=== PATIENT | female | born 1955 | race Hispanic/Latino ===

== ENCOUNTER → 2017-08-22 | Day surgery (SDC) | payer MEDICARE, BC ==
[2017-08-21 11:45] LABS: BASOPHILS # (AUTO) 0.1 (0.0-0.1); BASOPHILS % 1.1 % (0.0-1.0); EOSINOPHILS # (AUTO) 0.3 (0.0-0.4); EOSINOPHILS % 3.9 % (0.0-6.0); HEMOGLOBIN 14.7 g/dL (12.0-16.0); LYMPHOCYTES # (AUTO) 3.1 (1.0-3.2); LYMPHOCYTES % 48.1 % (18.0-39.1); MEAN CORPUSCULAR HEMOGLOBIN 31.1 pg (28-32); MEAN CORPUSCULAR HGB CONC 32.7 g/dL (31-35); MEAN CORPUSCULAR VOLUME 95.3 fL (81-99); MONOCYTES # (AUTO) 0.7 (0.2-0.8); MONOCYTES % 10.6 % (4.4-11.3); NEUTROPHILS # (AUTO) 2.4 (2.1-6.9); NEUTROPHILS % 36.1 % (38.7-80.0); PLATELET COUNT 126 x10e3/uL (140-360); RED BLOOD COUNT 4.72 x10e6/uL (3.6-5.1)
[~2017-08-22] MED LIST: ALENDRONATE SOD70 MG PO; ALPRAZOLAM0.25 M1 PO; ARAVA10 MG PO; CARAFATE1 GM PO; CYCLOBENZAPRINE10 MG PO; DICYCLOMINE HCL20 MG PO; FENTANYL CITRATE/PF 100MCG/2 ML INJ ONE; FOLIC ACID1 MG PO; GABAPENTIN300 MG PO; HUMIRA40 MG/0.8 SC; HYOSCYAMINE SULFATE 0.5 MG/ML AMP ONE; METHOCARBAMOL750 MG PO; METOCLOPRAMIDE10 MG PO; METOPROLOL SUC100 MG PO; METOPROLOL TAR100 MG PO; MICARDIS HCT 81 EACH PEG; MIDAZOLAM HCL 2 MG/2 ML VIAL ONE; NEXIUM40 MG PO; OMEPRAZOLE40 MG PO; PLAQUENIL200 MG PO; PREDNISONE5 M1 PO; PREDNISONE5 MG PO; PROPOFOL IV EMULSION 10 MG/ML 50 ML VIAL ONE; SUCRALFATE1 GM PO; TYLENOL EXTRA500 MG PO; ULTRAM50 MG PO
--- NOTE | 2017-08-22 10:16 | Operative Report ---
DATE OF PROCEDURE: August 22, 2017 REFERRING PHYSICIAN: Dr. Claudia Hardy PROCEDURES PERFORMED 1. Esophagogastroduodenoscopy with esophageal dilatation and biopsies. 2. Colonoscopy with polypectomy. INDICATIONS FOR EGD: Dysphagia and bloating. INDICATIONS FOR COLONOSCOPY: Colorectal cancer screening and history of colon polyps. MEDICATION: Patient was done under MAC. Please see anesthesiologist's note. PROCEDURE: With the patient in the left lateral decubitus position, the flexible fiberoptic Olympus gastroscope was introduced into the esophagus under direct visualization without any difficulty. There was some patchy erythema noted in the distal esophagus. There was a mild stricture noted at the GE junction that was dilated to a size 52-[place] Flannery. The scope was then advanced with ease into the stomach traversing a small hiatal hernia. Mucosa overlying the antrum and the body revealed some patchy erythema and mild to moderate edema, and biopsies were obtained and sent to stain for H. pylori. Pylorus appeared to be of normal contour and shape. It was intubated with ease. The scope was advanced all the way to the 2nd portion of the duodenum. The scope was then withdrawn slowly. Mucosa overlying the proximal 2nd portion and the duodenal bulb appeared to be within normal limits. The scope was then withdrawn back into the stomach and retroflexed. The mucosa overlying the fundus and the cardia appeared to be within normal limits. The scope was then straightened out. The stomach was decompressed. The scope was subsequently withdrawn. Patient tolerated the procedure well. IMPRESSION 1. Mild distal esophagitis. 2. Mild stricture at gastroesophageal junction dilated to size 52-[place] Flannery. 3. Small hiatal hernia. 4. Gastritis, biopsied. Biopsies sent to stain for Helicobacter pylori. PLAN: Follow up histology. Initiate Protonix 40 mg 1 p.o. q.a.m. a.c. Patient was then turned around. After adequate lubrication of the anal canal, a flexible fiberoptic Olympus colonoscope was inserted into the rectum with ease and advanced all the way to the cecum. The scope was then withdrawn slowly. The cecum appeared to be within normal limits. A minute polyp was hot biopsied from the proximal ascending. An approximately 4 mm sessile polyp was snared from the distal ascending colon. The transverse and descending appeared to be within normal limits. Diverticular disease was noted to involve the sigmoid colon. The rectum appeared to be within normal limits. The scope was then retroflexed into the distal rectum and small internal hemorrhoids were noted, none of which was actively bleeding. The scope was then straightened out. The rectosigmoid area, as well as the distal rectal area were decompressed. The scope was subsequently withdrawn. Patient tolerated the procedure well. IMPRESSION 1. Ascending colon polyps, times 2, one snared and one hot biopsied. 2. Diverticulosis. 3. Internal hemorrhoids, none actively bleeding. PLAN: Follow up histology. Initiate high-fiber and low-fat diet. Initiate high-fiber supplement. Patient will need a followup colonoscopy in 3 years. Job#: [id number] RI cc:CLAUDIA HARDY MD
== END | disposition home or self-care (01) ==
LOC: OR 05:55
PROVIDERS: ATTEND Internal Medicine Gastroenterology
DX: Z12.11 Encounter for screening for malignant neoplasm of colon (principal); D12.2 Benign neoplasm of ascending colon; K29.70 Gastritis, unspecified, without bleeding; K22.2 Esophageal obstruction; K20.9 Esophagitis, unspecified; K21.9 Gastro-esophageal reflux disease without esophagitis; K44.9 Diaphragmatic hernia without obstruction or gangrene; K57.30 Diverticulosis of large intestine without perforation or abscess without bleeding; K64.8 Other hemorrhoids; I10 Essential (primary) hypertension; Z01.810 Encounter for preprocedural cardiovascular examination; Z01.812 Encounter for preprocedural laboratory examination
CPT/HCPCS: 36415; 43239; 43450; 45384; 45385; 85025; 88305; 88312; 93005; J1980; J2250

== ENCOUNTER → 2020-03-27 | Outpatient (CLI) | payer MEDICARE ==
[~2020-03-27] MED LIST changes: -FENTANYL CITRATE/PF 100MCG/2 ML INJ ONE; -HYOSCYAMINE SULFATE 0.5 MG/ML AMP ONE; -MIDAZOLAM HCL 2 MG/2 ML VIAL ONE; -PROPOFOL IV EMULSION 10 MG/ML 50 ML VIAL ONE
--- NOTE | 2020-03-27 08:09 | Diagnostic Imaging Report ---
EXAM: Complete Abdominal Ultrasound INDICATION: ^ABD PAIN,RT LATERAL COMPARISON: None. TECHNIQUE: Transverse and longitudinal images of the upper abdomen were obtained. FINDINGS: Liver: Size: 11.7 cm in the right midclavicular line, normal Appearance: Increased echogenicity, smooth contour Mass: No focal masses Spleen: Size: 9.2 cm in length, normal Echogenicity: Normal Mass: No focal masses Gallbladder: Removed Bile Ducts: Intrahepatic Ducts: No dilatation Extrahepatic Ducts: Common bile duct measures 0.6 cm, no dilatation Pancreas: Not well seen, obscured by bowel gas. Right Kidney: Size: 9.9 cm Echogenicity: Normal Parenchymal thickness: Normal Collecting System: No hydronephrosis Stone: None Cyst/Mass: None Left Kidney: Size: 10.2 cm Echogenicity: Normal Parenchymal thickness: Normal Collecting System: No hydronephrosis Stone: None Cyst/Mass: None Vessels: Aorta: Visualized portions are normal Inferior Vena Cava: Visualized portions are normal Main Portal Vein: 0.7 cm, normal size with hepatopetal flow. Free Fluid: No ascites or pleural effusion IMPRESSION: No acute sonographic abnormality identified. Signed by: Ronaldo Paz DO on 03/27/2020 8:06 AM
== END ==
LOC: US 06:55
PROVIDERS: ATTEND Internal Medicine Gastroenterology
DX: R10.9 Unspecified abdominal pain (principal)
CPT/HCPCS: 76700

== ENCOUNTER → 2020-08-11 | Day surgery (SDC) | payer BC, MEDICARE ==
[2020-08-09 08:50] LABS: HEMATOCRIT 39.6 % (34.2-44.1); MEAN CORPUSCULAR HGB CONC 32.8 g/dL (31-35); MEAN CORPUSCULAR VOLUME 94.5 fL (81-99); RED BLOOD COUNT 4.19 x10e6/uL (3.6-5.1); RED CELL DISTRIBUTION WIDTH 13.4 % (11.7-14.4)
[2020-08-09 08:51] LABS: BASOPHILS # (AUTO) 0.1 (0.0-0.1); BASOPHILS % 0.6 % (0.0-1.0); EOSINOPHILS # (AUTO) 0.1 (0.0-0.4); EOSINOPHILS % 1.1 % (0.0-6.0); LYMPHOCYTES # (AUTO) 2.9 (1.0-3.2); LYMPHOCYTES % 35.2 % (18.0-39.1); MONOCYTES # (AUTO) 0.8 (0.2-0.8); MONOCYTES % 9.1 % (4.4-11.3); NEUTROPHILS # (AUTO) 4.4 (2.1-6.9); NEUTROPHILS % 53.4 % (38.7-80.0); PLATELET COUNT 176 x10e3/uL (140-360)
[~2020-08-11] MED LIST changes: +DILTIAZEM ER PO; +HYOSCYAMINE 0.125 MG TAB ONE; +LIDOCAINE HCL 2% LOCAL INJ 5 ML SDV VIAL INJ ONE; +MIDAZOLAM HCL 2 MG/2 ML VIAL ONE; +ONDANSETRON HCL INJ 2MG/ML 2ML 2 MG/ML VIAL ONE; +ONDANSETRON HCL8 MG PO; +PROPOFOL IV EMULSION 10 MG/ML 20 ML VIAL ONE; +REGLAN10 MG PO; +TRIAMTERENE-HCTZ1 EA PO; +VSL#3 CAPSULE1 EACH PO; +XARELTO20 MG PO
[2020-08-11 15:20] VITALS: BP 149/75
== END | disposition home or self-care (01) ==
LOC: OR 10:23
PROVIDERS: ATTEND Internal Medicine Gastroenterology
DX: K29.70 Gastritis, unspecified, without bleeding (principal); D12.0 Benign neoplasm of cecum; D12.3 Benign neoplasm of transverse colon; K31.7 Polyp of stomach and duodenum; K22.2 Esophageal obstruction; K20.90 Esophagitis, unspecified without bleeding; K44.9 Diaphragmatic hernia without obstruction or gangrene; K28.9 Gastrojejunal ulcer, unspecified as acute or chronic, without hemorrhage or perforation; K21.9 Gastro-esophageal reflux disease without esophagitis; K57.30 Diverticulosis of large intestine without perforation or abscess without bleeding; K62.89 Other specified diseases of anus and rectum; K64.8 Other hemorrhoids; I49.1 Atrial premature depolarization; M06.9 Rheumatoid arthritis, unspecified; I10 Essential (primary) hypertension; E78.5 Hyperlipidemia, unspecified; I48.91 Unspecified atrial fibrillation; R60.9 Edema, unspecified; F41.9 Anxiety disorder, unspecified; Z01.810 Encounter for preprocedural cardiovascular examination; Z01.812 Encounter for preprocedural laboratory examination; Z20.822 Contact with and (suspected) exposure to COVID-19; Z79.02 Long term (current) use of antithrombotics/antiplatelets; Z80.0 Family history of malignant neoplasm of digestive organs
CPT/HCPCS: 36415; 43239; 43450; 45380; 85025; 93005; J2001; J2250; J2405; J2704; U0002; 45378; 45384

== ENCOUNTER 2021-01-23 21:05 | Inpatient (IN) | payer MEDICARE ==
[~2021-01-23] VITALS: Ht 162.6 cm; Wt 94.8 kg
[~2021-01-23 21:05] MED LIST changes: -HYOSCYAMINE 0.125 MG TAB ONE; -LIDOCAINE HCL 2% LOCAL INJ 5 ML SDV VIAL INJ ONE; -MIDAZOLAM HCL 2 MG/2 ML VIAL ONE; -ONDANSETRON HCL INJ 2MG/ML 2ML 2 MG/ML VIAL ONE; -PROPOFOL IV EMULSION 10 MG/ML 20 ML VIAL ONE
[2021-01-23] MEDS ORDERED: MORPHINE SULFATE INJ 4 MG/ML INJ 1ML IV STA (22:02)
[2021-01-23] MEDS ORDERED: ONDANSETRON HCL INJ 2MG/ML 2ML 2 MG/ML VIAL IV STA (22:02)
[2021-01-23] MEDS ORDERED: SODIUM CHLORIDE 0.9% 1000ML 1,000 ML IV ONE (22:15)
[2021-01-23 22:33] LABS: BASOPHILS % 0.3 % (0.0-1.0); EOSINOPHILS # (AUTO) 0.1 (0.0-0.4); EOSINOPHILS % 0.9 % (0.0-6.0); HEMATOCRIT 43.9 % (34.2-44.1); LYMPHOCYTES # (AUTO) 2.4 (1.0-3.2); MEAN CORPUSCULAR HEMOGLOBIN 32.1 pg (28-32); MEAN CORPUSCULAR HGB CONC 34.2 g/dL (31-35); MONOCYTES # (AUTO) 1.3 (0.2-0.8); MONOCYTES % 10.8 % (4.4-11.3); NEUTROPHILS # (AUTO) 7.9 (2.1-6.9); NEUTROPHILS % 66.8 % (38.7-80.0); PLATELET COUNT 217 x10e3/uL (140-360); RED BLOOD COUNT 4.67 x10e6/uL (3.6-5.1); RED CELL DISTRIBUTION WIDTH 13.1 % (11.7-14.4)
[2021-01-23 22:44] LABS: ALBUMIN 3.4 g/dL (3.5-5.0); ALBUMIN/GLOBULIN RATIO 0.9 (0.8-2.0); ANION GAP 17.1 mmol/L (8-16); CALCIUM 9.2 mg/dL (8.4-10.2); CREATININE, SERUM 1.2 mg/dL (0.57-1.11); POTASSIUM 3.1 mmol/L (3.5-5.1)
[2021-01-23 22:51] LABS: CREATINE KINASE MB 1.5 ng/mL (0-5.0)
[2021-01-23] MEDS ORDERED: CEFEPIME 1 GM in SODIUM CHLORIDE 0.9% 50ML 50 ML IV ONE (23:00)
[2021-01-23] MEDS ORDERED: SODIUM CHLORIDE 0.9% 50ML 50 ML ONE (23:05)
[2021-01-23] MEDS ORDERED: IOPAMIDOL 370 MG/ML 200 ML INFUS..BTL INJ ONE (23:05)
[2021-01-24 00:13] LABS: CLARITY,URINE CLEAR (CLEAR); COLOR,URINE YELLOW (YELLOW); KETONES,URINE TRACE (NEGATIVE); LEUKOCYTE ESTERASE ,URINE NEGATIVE (NEGATIVE); NITRITE,URINE NEGATIVE (NEGATIVE); PROTEIN,URINE DIPSTICK 1+ (NEGATIVE)
[2021-01-24 00:14] LABS: BACTERIA,URINE FEW /HPF; EPITHELIAL CELLS,URINE FEW /LPF; RBC,URINE 0-5 /HPF (0-5); URINE UROBILINOGEN 0.2 mg/dL (0.2 - 1); WBC,URINE (MAN) 0-5 /HPF (0-5)
[2021-01-24] MEDS ORDERED: MORPHINE SULFATE INJ 4 MG/ML INJ 1ML IV PRN (00:15)
[2021-01-24] MEDS ORDERED: KCL 20MEQ/.9 SOD CHL 1,000 ML IV ONE (00:15)
[2021-01-24] MEDS ORDERED: DEXTROSE 50% SYRINGE 50 ML IV PRN (00:15)
[2021-01-24] MEDS: METRONIDAZOLE 500MG/NS 100ML 100 ML IV SCH ×5 (00:24→23:56)
[2021-01-24] MEDS: ACETAMINOPHEN 325 MG TAB PO PRN ×3 (00:50→12:55)
[2021-01-24] MEDS ORDERED: ACETAMINOPHEN 325 MG TAB ONE (00:54)
[2021-01-24 01:25] VITALS: BP 135/56
[2021-01-24] MEDS: ONDANSETRON HCL INJ 2MG/ML 2ML 2 MG/ML VIAL IV PRN ×3 (04:50→20:43)
[2021-01-24] MEDS ORDERED: SODIUM CHLORIDE 0.9% 100 ML ONE (05:27)
[2021-01-24] MEDS: CEFEPIME 1 GM in SODIUM CHLORIDE 0.9% 50ML 50 ML IV SCH ×3 (05:28→22:10)
[2021-01-24] MEDS: INSULIN REGULAR, HUMAN 100 UNIT/1 ML 3ML VIAL SQ SCH ×4 (07:30→20:43)
[2021-01-24 08:14] VITALS: BP 122/55
[2021-01-24 08:32] LABS: CREATINE KINASE MB 4.1 ng/mL (0-5.0)
[2021-01-24 08:56] VITALS: BP 122/55
[2021-01-24] MEDS ORDERED: GABAPENTIN400 MG PO (10:13)
[2021-01-24] MEDS ORDERED: PANTOPRAZOLE SO40 MG PO (10:13)
[2021-01-24] MEDS ORDERED: METHOCARBAMOL750 MG PO (10:14)
[2021-01-24] MEDS ORDERED: ETODOLAC400 MG PO (10:15)
[2021-01-24 11:25] VITALS: BP 138/55
[2021-01-24] MEDS ORDERED: SODIUM CHLORIDE 0.9% 50ML 50 ML ONE (12:50)
[2021-01-24 15:21] VITALS: BP 144/57
[2021-01-24 16:52] LABS: CREATINE KINASE MB 5.1 ng/mL (0-5.0)
[2021-01-24 20:00] VITALS: BP 150/66
[2021-01-24] MEDS: ALPRAZOLAM 0.25 MG TAB PO SCH ×2 (20:38→21:44)
[2021-01-24] MEDS ORDERED: SODIUM CHLORIDE 0.9% 250ML 250 ML ONE (22:02)
[2021-01-25] VITALS (8 sets, daily range): BP systolic 117–153; BP diastolic 61–79
[2021-01-25] MEDS ORDERED: METOCLOPRAMIDE HCL 10 MG/2ML VIAL IV STA (00:59)
[2021-01-25] MEDS ORDERED: Pantoprazole IV 50 ML IV SCH (01:00)
[2021-01-25] MEDS: Pantoprazole IV 40 MG in SODIUM CHLORIDE 0.9% 50ML 50 ML IV SCH ×5 (03:15→23:15)
[2021-01-25] MEDS: CEFEPIME 1 GM in SODIUM CHLORIDE 0.9% 50ML 50 ML IV SCH ×3 (05:27→22:00)
[2021-01-25 05:31] LABS: BASOPHILS % 0.5 % (0.0-1.0); EOSINOPHILS # (AUTO) 0.1 (0.0-0.4); EOSINOPHILS % 1.6 % (0.0-6.0); HEMATOCRIT 37.1 % (34.2-44.1); HEMOGLOBIN 12.3 g/dL (12.0-16.0); LYMPHOCYTES # (AUTO) 1.6 (1.0-3.2); LYMPHOCYTES % 20.7 % (18.0-39.1); MEAN CORPUSCULAR HEMOGLOBIN 31.2 pg (28-32); MEAN CORPUSCULAR HGB CONC 33.2 g/dL (31-35); MEAN CORPUSCULAR VOLUME 94.2 fL (81-99); MONOCYTES # (AUTO) 1.2 (0.2-0.8); MONOCYTES % 14.9 % (4.4-11.3); NEUTROPHILS # (AUTO) 4.7 (2.1-6.9); NEUTROPHILS % 61.1 % (38.7-80.0); PLATELET COUNT 152 x10e3/uL (140-360); RED BLOOD COUNT 3.94 x10e6/uL (3.6-5.1); RED CELL DISTRIBUTION WIDTH 13.1 % (11.7-14.4)
[2021-01-25 05:59] LABS: ALBUMIN 2.7 g/dL (3.5-5.0); ALBUMIN/GLOBULIN RATIO 0.9 (0.8-2.0); CALCIUM 8.2 mg/dL (8.4-10.2); CREATININE, SERUM 0.84 mg/dL (0.57-1.11)
[2021-01-25] MEDS: METRONIDAZOLE 500MG/NS 100ML 100 ML IV SCH ×3 (06:07→17:41)
[2021-01-25] MEDS: METOCLOPRAMIDE HCL 10 MG/2ML VIAL IV SCH ×3 (07:15→17:41)
[2021-01-25] MEDS: INSULIN REGULAR, HUMAN 100 UNIT/1 ML 3ML VIAL SQ SCH ×4 (07:30→21:00)
[2021-01-25] MEDS ORDERED: PANTOPRAZOLE SOD 40 MG TABEC PO SCH (09:00)
[2021-01-25] MEDS ORDERED: POTASSIUM CHLORIDE 10MEQ EA PO ONE (09:30)
[2021-01-25] MEDS: SUCRALFATE 1 GM TAB PO SCH ×4 (10:10→21:20)
[2021-01-25] MEDS: METOPROLOL TARTRATE 50 MG TAB PO SCH ×2 (10:10→17:42)
[2021-01-25] MEDS: GABAPENTIN 400 MG CAP PO SCH ×3 (10:10→21:20)
[2021-01-25] MEDS: ENOXAPARIN SODIUM INJ 100 MG/ML SYR SC SCH ×2 (12:19→22:45)
[2021-01-25] MEDS: FOLIC ACID 1 MG TAB PO SCH (17:41)
[2021-01-25] MEDS: ACETAMINOPHEN 325 MG TAB PO PRN (18:00)
[2021-01-25] MEDS: ALPRAZOLAM 0.25 MG TAB PO SCH (21:00)
[2021-01-25] MEDS ORDERED: SODIUM CHLORIDE 0.9% 50ML 50 ML ONE (21:14)
[2021-01-26] VITALS (8 sets, daily range): BP systolic 130–146; BP diastolic 57–77
[2021-01-26] MEDS: METRONIDAZOLE 500MG/NS 100ML 100 ML IV SCH ×4 (00:20→18:14)
[2021-01-26] MEDS: METOCLOPRAMIDE HCL 10 MG/2ML VIAL IV SCH ×4 (00:20→18:14)
[2021-01-26] MEDS: Pantoprazole IV 40 MG in SODIUM CHLORIDE 0.9% 50ML 50 ML IV SCH ×4 (04:20→21:59)
[2021-01-26] MEDS: ACETAMINOPHEN 325 MG TAB PO PRN (04:58)
[2021-01-26] MEDS: CEFEPIME 1 GM in SODIUM CHLORIDE 0.9% 50ML 50 ML IV SCH ×3 (06:30→22:07)
[2021-01-26] MEDS: INSULIN REGULAR, HUMAN 100 UNIT/1 ML 3ML VIAL SQ SCH ×4 (09:33→21:00)
[2021-01-26] MEDS: FOLIC ACID 1 MG TAB PO SCH (09:34)
[2021-01-26] MEDS: SUCRALFATE 1 GM TAB PO SCH ×4 (09:34→21:58)
[2021-01-26] MEDS: METOPROLOL TARTRATE 50 MG TAB PO SCH ×2 (09:35→16:22)
[2021-01-26] MEDS: GABAPENTIN 400 MG CAP PO SCH ×3 (09:35→21:58)
[2021-01-26] MEDS: ENOXAPARIN SODIUM INJ 100 MG/ML SYR SC SCH ×2 (09:59→22:03)
[2021-01-26] MEDS: ALPRAZOLAM 0.25 MG TAB PO SCH (22:02)
[2021-01-27] VITALS: BP 137/61
[2021-01-27] MEDS: METOCLOPRAMIDE HCL 10 MG/2ML VIAL IV SCH ×2 (00:25→06:17)
[2021-01-27] MEDS: METRONIDAZOLE 500MG/NS 100ML 100 ML IV SCH ×2 (00:25→06:13)
[2021-01-27] MEDS: Pantoprazole IV 40 MG in SODIUM CHLORIDE 0.9% 50ML 50 ML IV SCH ×2 (01:39→06:59)
[2021-01-27 04:00] VITALS: BP 127/51
[2021-01-27] MEDS: INSULIN REGULAR, HUMAN 100 UNIT/1 ML 3ML VIAL SQ SCH (07:30)
[2021-01-27] MEDS: CEFEPIME 1 GM in SODIUM CHLORIDE 0.9% 50ML 50 ML IV SCH (07:31)
[2021-01-27 08:00] VITALS: BP 137/68
[2021-01-27 08:37] VITALS: BP 137/68
[2021-01-27] MEDS: FOLIC ACID 1 MG TAB PO SCH (09:18)
[2021-01-27] MEDS: SUCRALFATE 1 GM TAB PO SCH (09:18)
[2021-01-27] MEDS: METOPROLOL TARTRATE 50 MG TAB PO SCH (09:22)
[2021-01-27] MEDS: GABAPENTIN 400 MG CAP PO SCH (09:22)
[2021-01-27] MEDS: ACETAMINOPHEN 325 MG TAB PO PRN (09:23)
[2021-01-27] MEDS ORDERED: METOPROLOL TART50 MG PO (10:18)
== END 2021-01-27 11:41 | disposition home or self-care (01) | DRG 392 ==
LOC: ER 22:09 → ERHOLD 01-24 00:09 → MED/SURG2 01-24 03:52 → OBSVTOIN 01-25 08:31
PROVIDERS: ADMIT Internal Medicine; ATTEND Internal Medicine
DX: K57.30 Diverticulosis of large intestine without perforation or abscess without bleeding (principal); K29.70 Gastritis, unspecified, without bleeding; I10 Essential (primary) hypertension; M06.9 Rheumatoid arthritis, unspecified; I48.0 Paroxysmal atrial fibrillation; E11.9 Type 2 diabetes mellitus without complications; E87.6 Hypokalemia; K21.9 Gastro-esophageal reflux disease without esophagitis; Z90.49 Acquired absence of other specified parts of digestive tract; E78.00 Pure hypercholesterolemia, unspecified; Z79.52 Long term (current) use of systemic steroids; Z79.01 Long term (current) use of anticoagulants; I87.2 Venous insufficiency (chronic) (peripheral)
CPT/HCPCS: 36415; 74177; 80053; 81001; 82550; 82553; 82948; 83605; 84484; 85025; 87040; 93005; 96361; 96366; 99284; G0378; J0692; J1650; J2270; J2405; J2765; J7030; J7050; Q9967

== ENCOUNTER 2021-05-16 11:20 | Observation (INO) | payer MEDICARE ==
[~2021-05-16] VITALS: Ht 162.6 cm; Wt 93.0 kg
[~2021-05-16 11:20] MED LIST changes: +ETODOLAC400 MG PO; +GABAPENTIN400 MG PO; +METOPROLOL TART50 MG PO; +PANTOPRAZOLE SO40 MG PO
[2021-05-16] MEDS ORDERED: SODIUM CHLORIDE 0.9% 1000ML 1,000 ML IV SCH (11:30)
[2021-05-16 12:12] LABS: BASOPHILS # (AUTO) 0.1 (0.0-0.1); BASOPHILS % 0.7 % (0.0-1.0); EOSINOPHILS # (AUTO) 0.1 (0.0-0.4); EOSINOPHILS % 1.7 % (0.0-6.0); HEMATOCRIT 36.4 % (34.2-44.1); HEMOGLOBIN 11.3 g/dL (12.0-16.0); LYMPHOCYTES # (AUTO) 1.5 (1.0-3.2); LYMPHOCYTES % 22.1 % (18.0-39.1); MEAN CORPUSCULAR HEMOGLOBIN 27.1 pg (28-32); MEAN CORPUSCULAR VOLUME 87.3 fL (81-99); MONOCYTES # (AUTO) 1.1 (0.2-0.8); MONOCYTES % 15.6 % (4.4-11.3); NEUTROPHILS # (AUTO) 4.1 (2.1-6.9); NEUTROPHILS % 59.3 % (38.7-80.0); PLATELET COUNT 185 x10e3/uL (140-360); RED BLOOD COUNT 4.17 x10e6/uL (3.6-5.1)
[2021-05-16 12:29] LABS: CLARITY,URINE CLEAR (CLEAR); COLOR,URINE YELLOW (YELLOW)
[2021-05-16 12:30] LABS: LEUKOCYTE ESTERASE ,URINE NEGATIVE (NEGATIVE); NITRITE,URINE NEGATIVE (NEGATIVE); PROTEIN,URINE DIPSTICK 2+ (NEGATIVE)
[2021-05-16 12:31] LABS: KETONES,URINE NEGATIVE (NEGATIVE); URINE UROBILINOGEN 0.2 mg/dL (0.2 - 1)
[2021-05-16 12:31] LABS: ALBUMIN 3.2 g/dL (3.5-5.0); ANION GAP 12.1 mmol/L (8-16); CALCIUM 8.3 mg/dL (8.4-10.2); CREATININE, SERUM 1.01 mg/dL (0.57-1.11); POTASSIUM 3.1 mmol/L (3.5-5.1)
[2021-05-16 12:44] LABS: BACTERIA,URINE FEW /HPF; EPITHELIAL CELLS,URINE FEW /LPF; RBC,URINE 0-5 /HPF (0-5); WBC,URINE (MAN) 0-5 /HPF (0-5)
[2021-05-16] MEDS ORDERED: FUROSEMIDE INJ 10 MG/ML 4 ML VIAL IV ONE (13:30)
[2021-05-16 16:18] VITALS: BP 155/78
[2021-05-16 16:20] VITALS: BP 155/78
[2021-05-16] MEDS ORDERED: ONDANSETRON HCL INJ 2MG/ML 2ML 2 MG/ML VIAL IV PRN (16:45)
[2021-05-16] MEDS ORDERED: HYDRALAZINE HCL 20 MG/ML VIAL IV PRN (16:45)
[2021-05-16] MEDS ORDERED: ACETAMINOPHEN 325 MG TAB PO PRN (16:45)
[2021-05-16] MEDS ORDERED: POTASSIUM CHLORIDE 20 MEQ TAB CR PO ONE ×2 (17:00→22:00)
[2021-05-16] MEDS: DOCUSATE SODIUM 100 MG CAP PO SCH (17:07)
[2021-05-16] MEDS: METOPROLOL TARTRATE 50 MG TAB PO SCH (17:08)
[2021-05-16] MEDS: PANTOPRAZOLE SOD 40 MG TABEC PO SCH (17:08)
[2021-05-16 20:00] VITALS: BP 136/79
[2021-05-16 20:16] VITALS: BP 136/79
[2021-05-16] MEDS: GABAPENTIN 400 MG CAP PO SCH (20:28)
[2021-05-17 00:31] VITALS: BP 151/68
[2021-05-17 04:13] LABS: CREATINE KINASE MB 0.5 ng/mL (0-5.0)
[2021-05-17 05:04] VITALS: BP 158/76
[2021-05-17 06:12] LABS: BASOPHILS % 0.5 % (0.0-1.0); EOSINOPHILS # (AUTO) 0.1 (0.0-0.4); EOSINOPHILS % 1.2 % (0.0-6.0); HEMATOCRIT 37.9 % (34.2-44.1); HEMOGLOBIN 11.9 g/dL (12.0-16.0); LYMPHOCYTES # (AUTO) 2.4 (1.0-3.2); LYMPHOCYTES % 42.2 % (18.0-39.1); MEAN CORPUSCULAR HEMOGLOBIN 27.2 pg (28-32); MEAN CORPUSCULAR HGB CONC 31.4 g/dL (31-35); MEAN CORPUSCULAR VOLUME 86.7 fL (81-99); MONOCYTES # (AUTO) 1.4 (0.2-0.8); MONOCYTES % 25.6 % (4.4-11.3); NEUTROPHILS # (AUTO) 1.7 (2.1-6.9); NEUTROPHILS % 30.1 % (38.7-80.0); PLATELET COUNT 174 x10e3/uL (140-360); RED BLOOD COUNT 4.37 x10e6/uL (3.6-5.1)
[2021-05-17 06:50] LABS: ANION GAP 15.7 mmol/L (8-16); CALCIUM 8.6 mg/dL (8.4-10.2); CREATININE, SERUM 0.94 mg/dL (0.57-1.11); POTASSIUM 3.7 mmol/L (3.5-5.1)
[2021-05-17 07:12] LABS: CREATINE KINASE MB 0.5 ng/mL (0-5.0)
[2021-05-17] MEDS: PANTOPRAZOLE SOD 40 MG TABEC PO SCH (08:42)
[2021-05-17] MEDS: METOPROLOL TARTRATE 50 MG TAB PO SCH (08:43)
[2021-05-17] MEDS: DOCUSATE SODIUM 100 MG CAP PO SCH (08:43)
[2021-05-17] MEDS: GABAPENTIN 400 MG CAP PO SCH (08:44)
[2021-05-17 09:00] VITALS: BP 147/77
[2021-05-17] MEDS ORDERED: MULTIVITAMINS/MINERALS TAB PO SCH (09:00)
[2021-05-17] MEDS ORDERED: ALPRAZOLAM 0.25 MG TAB PO SCH (09:00)
[2021-05-17] MEDS ORDERED: FOLIC ACID 1 MG TAB PO SCH (09:00)
[2021-05-17] MEDS ORDERED: RIVAROXABAN 20 MG TABLET PO SCH (09:00)
[2021-05-17] MEDS ORDERED: LISINOPRIL 10 MG TAB PO SCH (09:00)
[2021-05-17 10:30] VITALS: BP 147/77
[2021-05-17] MEDS ORDERED: GABAPENTIN 400 MG CAP PO SCH (12:30)
[2021-05-17] MEDS ORDERED: METOPROLOL SUCCINATE 50 MG TAB XL PO ONE (12:45)
[2021-05-17] MEDS ORDERED: METOPROLOL TART50 MG PO (12:57)
[2021-05-17] MEDS ORDERED: FUROSEMIDE40 MG PO (12:57)
[2021-05-17] MEDS ORDERED: COZAAR100 MG PO (12:57)
[2021-05-17] MEDS ORDERED: FUROSEMIDE INJ 10 MG/ML 4 ML VIAL IV ONE (13:00)
[2021-05-17 13:16] VITALS: BP 153/64
[2021-05-17] MEDS ORDERED: POTASSIUM CHLORIDE 20 MEQ TAB CR PO ONE (13:20)
[2021-05-17] MEDS ORDERED: ONDANSETRON HCL 4 MG ORAL DISINTEGRATING TAB PO PRN (13:45)
[2021-05-17] MEDS ORDERED: ALPRAZOLAM 0.25 MG TAB PO PRN (21:00)
[2021-05-17] MEDS ORDERED: METOPROLOL TARTRATE 50 MG TAB PO SCH (21:00)
[2021-05-18] MEDS ORDERED: METOPROLOL SUCCINATE 50 MG TAB XL PO SCH (09:00)
[2021-05-18] MEDS ORDERED: LOSARTAN POTASSIUM 100 MG TAB PO SCH (09:00)
[2021-05-18] MEDS ORDERED: FUROSEMIDE 40 MG TAB PO SCH (09:00)
== END 2021-05-17 14:13 | disposition home or self-care (01) ==
LOC: ER 11:25 → ERHOLD 13:32 → MED/SURG3 15:22
PROVIDERS: ADMIT Internal Medicine; ATTEND Internal Medicine
DX: I11.0 Hypertensive heart disease with heart failure (principal); I50.33 Acute on chronic diastolic (congestive) heart failure; J96.01 Acute respiratory failure with hypoxia; R07.9 Chest pain, unspecified; E78.5 Hyperlipidemia, unspecified; K21.9 Gastro-esophageal reflux disease without esophagitis; I48.0 Paroxysmal atrial fibrillation; Z79.01 Long term (current) use of anticoagulants; F41.9 Anxiety disorder, unspecified; E66.9 Obesity, unspecified; E88.09 Other disorders of plasma-protein metabolism, not elsewhere classified; E87.6 Hypokalemia; I87.2 Venous insufficiency (chronic) (peripheral); M06.9 Rheumatoid arthritis, unspecified; Z68.35 Body mass index [BMI] 35.0-35.9, adult; G62.9 Polyneuropathy, unspecified
CPT/HCPCS: 36415; 71045 ×2; 80048; 80053; 81001; 82550; 82553; 83690; 83880; 84484 ×2; 85025 ×2; 85379; 93005; 99284; G0378 ×2; J1940 ×2; J2405; J7030; S0164 ×2; U0002

== ENCOUNTER → 2021-06-27 | Outpatient (CLI) | payer MEDICARE ==
[~2021-06-27] MED LIST changes: +COZAAR100 MG PO; +FUROSEMIDE40 MG PO
== END ==
LOC: MAMMO 10:11
PROVIDERS: ATTEND Obstetrics & Gynecology
DX: Z12.31 Encounter for screening mammogram for malignant neoplasm of breast (principal); M85.88 Other specified disorders of bone density and structure, other site
CPT/HCPCS: 77067; 77080

== ENCOUNTER 2021-10-25 08:19 | Emergency (ER) | payer MEDICARE ==
[~2021-10-25] VITALS: Ht 162.6 cm; Wt 93.0 kg
[2021-10-25 08:56] LABS: BASOPHILS # (AUTO) 0.1 (0.0-0.1); BASOPHILS % 0.5 % (0.0-1.0); EOSINOPHILS # (AUTO) 0.2 (0.0-0.4); EOSINOPHILS % 1.5 % (0.0-6.0); HEMATOCRIT 37.3 % (34.2-44.1); HEMOGLOBIN 11.6 g/dL (12.0-16.0); LYMPHOCYTES # (AUTO) 3.4 (1.0-3.2); LYMPHOCYTES % 31.4 % (18.0-39.1); MEAN CORPUSCULAR HEMOGLOBIN 27.3 pg (28-32); MEAN CORPUSCULAR HGB CONC 31.1 g/dL (31-35); MEAN CORPUSCULAR VOLUME 87.8 fL (81-99); MONOCYTES % 8.9 % (4.4-11.3); NEUTROPHILS # (AUTO) 6.1 (2.1-6.9); NEUTROPHILS % 57.2 % (38.7-80.0); PLATELET COUNT 256 x10e3/uL (140-360); RED BLOOD COUNT 4.25 x10e6/uL (3.6-5.1); RED CELL DISTRIBUTION WIDTH 14.1 % (11.7-14.4)
[2021-10-25 09:25] LABS: ALBUMIN 3.5 g/dL (3.5-5.0); ANION GAP 11.8 mmol/L (8-16); CALCIUM 8.9 mg/dL (8.4-10.2); CREATININE, SERUM 1.05 mg/dL (0.57-1.11); POTASSIUM 3.8 mmol/L (3.5-5.1)
[2021-10-25 13:53] VITALS: BP 172/83
== END 2021-10-25 13:56 | disposition home or self-care (01) ==
LOC: ER 08:21
DX: R00.2 Palpitations (principal); R07.89 Other chest pain; I10 Essential (primary) hypertension; E78.5 Hyperlipidemia, unspecified
CPT/HCPCS: 36415; 71045; 80053; 83880; 84484; 85025; 93005; 99284

== ENCOUNTER → 2022-01-24 | Outpatient (CLI) | payer MEDICARE ==
[~2022-01-24] MED LIST changes: +ALPRAZOLAM0.25 MG PO; +AMIODARONE HCL200 MG PO; +AMLODIPINE BESYL5 MG PO; +ARAVA20 MG PO; +ASPIRIN CHEW81 MG PO; +COZAAR25 MG PO; +DULCOLAX SUPP10 MG PR; +ELIQUIS5 MG PO; +FLONASE ALLERG9.9 ML INH; +FOLIC ACID0.4 MG PO; +GREEN TEA EXTR150 MG; +LASIX20 MG PO; +LIPITOR20 MG PO; +LOSARTAN POTAS100 MG PO; +MELATONIN3 MG PO; +METOPROLOL SUCC50 MG PO; +OMEGA XL PO; +TOPROL XL50 MG PO; +ZYRTEC-D TABLE1 EACH
== END ==
LOC: DX 09:28
PROVIDERS: ATTEND Internal Medicine Cardiovascular Disease
DX: R06.02 Shortness of breath (principal)
CPT/HCPCS: 71046

== ENCOUNTER 2022-06-20 17:13 | Observation (INO) | payer MEDICARE ==
[~2022-06-20] VITALS: Ht 162.6 cm; Wt 91.6 kg
[2022-06-20 17:35] LABS: BASOPHILS # (AUTO) 0.1 (0.0-0.1); BASOPHILS % 0.5 % (0.0-1.0); EOSINOPHILS % 0.2 % (0.0-6.0); HEMATOCRIT 44.7 % (34.2-44.1); HEMOGLOBIN 14.6 g/dL (12.0-16.0); LYMPHOCYTES # (AUTO) 1.8 (1.0-3.2); LYMPHOCYTES % 15.7 % (18.0-39.1); MEAN CORPUSCULAR HEMOGLOBIN 31.1 pg (28-32); MEAN CORPUSCULAR HGB CONC 32.7 g/dL (31-35); MEAN CORPUSCULAR VOLUME 95.1 fL (81-99); MONOCYTES # (AUTO) 1.2 (0.2-0.8); MONOCYTES % 10.4 % (4.4-11.3); NEUTROPHILS # (AUTO) 8.3 (2.1-6.9); NEUTROPHILS % 71.3 % (38.7-80.0); PLATELET COUNT 257 x10e3/uL (140-360); RED CELL DISTRIBUTION WIDTH 14.2 % (11.7-14.4)
[2022-06-20 17:54] LABS: ALBUMIN 3.3 g/dL (3.5-5.0); ALBUMIN/GLOBULIN RATIO 0.8 (0.8-2.0); ANION GAP 22.1 mmol/L (8-16); CALCIUM 9.8 mg/dL (8.4-10.2); CREATININE, SERUM 2.32 mg/dL (0.57-1.11); POTASSIUM 4.1 mmol/L (3.5-5.1)
[2022-06-20 18:00] LABS: CREATINE KINASE MB 2.3 ng/mL (0-5.0)
[2022-06-20] MEDS ORDERED: Morphine 2mg Syringe 2 MG/ML SYR IV PRN ×2 (19:00→22:45)
[2022-06-20] MEDS ORDERED: DEXTROSE 50% SYRINGE 50 ML IV PRN (19:00)
[2022-06-20] MEDS ORDERED: ONDANSETRON HCL INJ 2MG/ML 2ML 2 MG/ML VIAL IV PRN (19:00)
[2022-06-20] MEDS ORDERED: SODIUM CHLORIDE 0.9% 500ML 500 ML IV ONE (19:15)
[2022-06-20 20:01] VITALS: BP 108/71
[2022-06-20] MEDS: INSULIN REGULAR, HUMAN 100 UNIT/1 ML SQ SCH (20:39)
[2022-06-20 21:00] VITALS: BP 108/71
[2022-06-20] MEDS ORDERED: FUROSEMIDE40 MG PO ×2 (21:37)
[2022-06-20 21:47] LABS: CREATINE KINASE MB 2.1 ng/mL (0-5.0)
[2022-06-20 22:00] VITALS: BP 108/71
[2022-06-20] MEDS: ALPRAZOLAM 0.25 MG TAB PO SCH (22:00)
[2022-06-20] MEDS ORDERED: ATORVASTATIN 20 MG TAB PO SCH (22:00)
[2022-06-20] MEDS ORDERED: HYDRALAZINE HCL 20 MG/ML VIAL IV PRN (22:45)
[2022-06-20] MEDS ORDERED: MAGNESIUM/ALUMINUM/SIMETHICONE 30 ML UDC PO PRN (22:45)
[2022-06-20] MEDS ORDERED: ACETAMINOPHEN 325 MG TAB PO PRN (22:45)
[2022-06-20] MEDS ORDERED: GUAIFENESIN/DEXTROMETHORPHAN LIQD 5 ML UDC PO PRN (22:45)
[2022-06-20] MEDS ORDERED: TRAMADOL/APAP 37.5MG-325MG TAB PO PRN (22:45)
[2022-06-20] MEDS ORDERED: MELATONIN 3 MG TAB PO PRN (22:45)
[2022-06-20] MEDS ORDERED: DOCUSATE SODIUM 100 MG CAP PO PRN (22:45)
[2022-06-20] MEDS ORDERED: ALBUTEROL/IPRATROPIUM 3 ML NEB NEB PRN (22:45)
[2022-06-21] VITALS (7 sets, daily range): BP systolic 93–124; BP diastolic 61–71
[2022-06-21 06:09] LABS: BASOPHILS % 0.4 % (0.0-1.0); EOSINOPHILS % 0.3 % (0.0-6.0); HEMATOCRIT 38.9 % (34.2-44.1); HEMOGLOBIN 13.3 g/dL (12.0-16.0); LYMPHOCYTES % 19.9 % (18.0-39.1); MEAN CORPUSCULAR HEMOGLOBIN 31.2 pg (28-32); MEAN CORPUSCULAR HGB CONC 34.2 g/dL (31-35); MEAN CORPUSCULAR VOLUME 91.3 fL (81-99); MONOCYTES # (AUTO) 1.3 (0.2-0.8); MONOCYTES % 12.5 % (4.4-11.3); NEUTROPHILS # (AUTO) 6.4 (2.1-6.9); NEUTROPHILS % 63.8 % (38.7-80.0); PLATELET COUNT 237 x10e3/uL (140-360); RED BLOOD COUNT 4.26 x10e6/uL (3.6-5.1); RED CELL DISTRIBUTION WIDTH 14.6 % (11.7-14.4)
[2022-06-21 06:25] LABS: ANION GAP 19.6 mmol/L (8-16); CALCIUM 9.2 mg/dL (8.4-10.2); CHOL/HDL RATIO 5.3 (3.0-3.6); CREATININE, SERUM 2.06 mg/dL (0.57-1.11); POTASSIUM 3.6 mmol/L (3.5-5.1)
[2022-06-21] MEDS: DICYCLOMINE HCL 20 MG TAB PO SCH ×3 (06:28→21:26)
[2022-06-21 06:33] LABS: CREATINE KINASE MB 2.2 ng/mL (0-5.0)
[2022-06-21 06:57] LABS: CREATINE KINASE MB 2.2 ng/mL (0-5.0)
[2022-06-21] MEDS: INSULIN REGULAR, HUMAN 100 UNIT/1 ML SQ SCH ×4 (07:30→21:00)
[2022-06-21 08:28] LABS: CLARITY,URINE CLEAR (CLEAR); COLOR,URINE YELLOW (YELLOW)
[2022-06-21 08:29] LABS: KETONES,URINE NEGATIVE (NEGATIVE); LEUKOCYTE ESTERASE ,URINE NEGATIVE (NEGATIVE); NITRITE,URINE NEGATIVE (NEGATIVE); PROTEIN,URINE DIPSTICK NEGATIVE (NEGATIVE); URINE UROBILINOGEN 0.2 mg/dL (0.2 - 1)
[2022-06-21] MEDS: PREDNISONE 5 MG TAB PO SCH (08:36)
[2022-06-21] MEDS: APIXABAN 5 MG TABLET PO SCH ×2 (08:36→16:06)
[2022-06-21] MEDS: GABAPENTIN 300 MG CAP PO SCH ×3 (08:36→21:00)
[2022-06-21] MEDS: AMIODARONE HCL 200 MG TAB PO SCH ×2 (08:36→21:00)
[2022-06-21] MEDS: FOLIC ACID 1 MG TAB PO SCH (08:36)
[2022-06-21] MEDS: MULTIVITAMINS/MINERALS TAB PO SCH (08:37)
[2022-06-21] MEDS: METOPROLOL SUCCINATE 50 MG TAB XL PO SCH ×2 (08:37→16:07)
[2022-06-21] MEDS: PANTOPRAZOLE SOD 40 MG TABEC PO SCH (08:37)
[2022-06-21] MEDS: METOCLOPRAMIDE HCL 10 MG TAB PO SCH ×2 (08:37→16:05)
[2022-06-21] MEDS: FLUTICASONE PROPIONATE NASAL SPRAY NS SCH ×2 (08:38→16:06)
[2022-06-21 08:39] LABS: BACTERIA,URINE MANY /HPF; EPITHELIAL CELLS,URINE MODERATE /LPF; RBC,URINE 0-5 /HPF (0-5); WBC,URINE (MAN) 0-5 /HPF (0-5)
[2022-06-21] MEDS: NON-FORMULARY MEDICATION (Leflunomide (Arava) 20 MG) PO SCH (09:00)
[2022-06-21] MEDS: SODIUM CHLORIDE 0.9% 1000ML 1,000 ML IV SCH (20:17)
[2022-06-21] MEDS: ATORVASTATIN 40 MG TAB PO SCH (21:00)
[2022-06-21] MEDS: ALPRAZOLAM 0.25 MG TAB PO SCH (21:00)
[2022-06-21] MEDS ORDERED: SODIUM CHLORIDE 0.9% 1000ML 1,000 ML ONE (21:27)
[2022-06-22] VITALS (8 sets, daily range): BP systolic 105–139; BP diastolic 55–85
[2022-06-22] MEDS: DICYCLOMINE HCL 20 MG TAB PO SCH ×3 (05:49→20:59)
[2022-06-22] MEDS: SODIUM CHLORIDE 0.9% 1000ML 1,000 ML IV SCH ×2 (05:50→17:24)
[2022-06-22 07:16] LABS: ANION GAP 16.9 mmol/L (8-16); CALCIUM 8.9 mg/dL (8.4-10.2); CREATININE, SERUM 1.54 mg/dL (0.57-1.11); POTASSIUM 3.9 mmol/L (3.5-5.1)
[2022-06-22] MEDS: INSULIN REGULAR, HUMAN 100 UNIT/1 ML SQ SCH ×4 (07:30→21:00)
[2022-06-22] MEDS: NON-FORMULARY MEDICATION (Leflunomide (Arava) 20 MG) PO SCH (09:00)
[2022-06-22] MEDS: MULTIVITAMINS/MINERALS TAB PO SCH (09:47)
[2022-06-22] MEDS: FOLIC ACID 1 MG TAB PO SCH (09:47)
[2022-06-22] MEDS: GABAPENTIN 300 MG CAP PO SCH ×3 (09:47→20:59)
[2022-06-22] MEDS: APIXABAN 5 MG TABLET PO SCH ×2 (09:47→17:23)
[2022-06-22] MEDS: METOPROLOL SUCCINATE 50 MG TAB XL PO SCH ×2 (09:47→17:24)
[2022-06-22] MEDS: METOCLOPRAMIDE HCL 10 MG TAB PO SCH ×2 (09:48→17:23)
[2022-06-22] MEDS: FLUTICASONE PROPIONATE NASAL SPRAY NS SCH ×2 (09:48→17:23)
[2022-06-22] MEDS: AMIODARONE HCL 200 MG TAB PO SCH ×2 (09:48→20:58)
[2022-06-22] MEDS: PANTOPRAZOLE SOD 40 MG TABEC PO SCH (09:48)
[2022-06-22] MEDS: PREDNISONE 5 MG TAB PO SCH (10:36)
[2022-06-22] MEDS: ALPRAZOLAM 0.25 MG TAB PO SCH (20:59)
[2022-06-22] MEDS: ATORVASTATIN 40 MG TAB PO SCH (20:59)
[2022-06-23] VITALS: BP 132/62
[2022-06-23] MEDS: SODIUM CHLORIDE 0.9% 1000ML 1,000 ML IV SCH (02:00)
[2022-06-23 02:10] VITALS: BP 158/67
[2022-06-23 04:25] VITALS: BP 142/72
[2022-06-23] MEDS: DICYCLOMINE HCL 20 MG TAB PO SCH (06:33)
[2022-06-23] MEDS: INSULIN REGULAR, HUMAN 100 UNIT/1 ML SQ SCH (07:30)
[2022-06-23 07:40] VITALS: BP 131/64
[2022-06-23] MEDS: MULTIVITAMINS/MINERALS TAB PO SCH (09:41)
[2022-06-23] MEDS: AMIODARONE HCL 200 MG TAB PO SCH (09:41)
[2022-06-23] MEDS: FOLIC ACID 1 MG TAB PO SCH (09:41)
[2022-06-23] MEDS: PREDNISONE 5 MG TAB PO SCH (09:41)
[2022-06-23] MEDS: PANTOPRAZOLE SOD 40 MG TABEC PO SCH (09:42)
[2022-06-23] MEDS: APIXABAN 5 MG TABLET PO SCH (09:42)
[2022-06-23] MEDS: GABAPENTIN 300 MG CAP PO SCH (09:42)
[2022-06-23] MEDS: METOPROLOL SUCCINATE 50 MG TAB XL PO SCH (09:42)
[2022-06-23] MEDS: METOCLOPRAMIDE HCL 10 MG TAB PO SCH (09:42)
== END 2022-06-23 11:49 | disposition home or self-care (01) ==
LOC: ER 17:35 → ERHOLD 18:49 → MED/SURG2 20:04 → MED/SURG 06-23 01:53
PROVIDERS: ADMIT Internal Medicine; ATTEND Internal Medicine
DX: R07.89 Other chest pain (principal); I25.10 Atherosclerotic heart disease of native coronary artery without angina pectoris; E78.5 Hyperlipidemia, unspecified; Z86.711 Personal history of pulmonary embolism; Z79.01 Long term (current) use of anticoagulants; N18.30 Chronic kidney disease, stage 3 unspecified; N17.9 Acute kidney failure, unspecified; E86.0 Dehydration; E88.09 Other disorders of plasma-protein metabolism, not elsewhere classified; E66.01 Morbid (severe) obesity due to excess calories; Z68.32 Body mass index [BMI] 32.0-32.9, adult; M06.9 Rheumatoid arthritis, unspecified; I48.91 Unspecified atrial fibrillation; I87.2 Venous insufficiency (chronic) (peripheral); I13.0 Hypertensive heart and chronic kidney disease with heart failure and stage 1 through stage 4 chronic kidney disease, or unspecified chronic kidney disease; I50.32 Chronic diastolic (congestive) heart failure; E11.69 Type 2 diabetes mellitus with other specified complication; Z20.822 Contact with and (suspected) exposure to COVID-19
CPT/HCPCS: 36415 ×4; 71045; 78580; 80048 ×2; 80053; 80061; 81001; 82550 ×2; 82553 ×2; 82948 ×3; 84484 ×2; 85025 ×2; 93005; 96361; 99284; A9540; G0378 ×4; J1817; J2270; J7030 ×3; J7040; J7512 ×3; J8597 ×3; S0164 ×3; U0002

== ENCOUNTER → 2022-07-08 | Outpatient (CLI) | payer MEDICARE | LOC: MAMMO 10:32 | PROVIDERS: ATTEND Internal Medicine | DX: Z12.31 Encounter for screening mammogram for malignant neoplasm of breast (principal) | CPT/HCPCS: 77067 ==

== ENCOUNTER 2022-09-24 15:25 | Observation (INO) | payer MEDICARE ==
[~2022-09-24] VITALS: Ht 162.6 cm; Wt 91.6 kg
[2022-09-24] MEDS: ONDANSETRON HCL INJ 2MG/ML 2ML 2 MG/ML VIAL IV PRN (16:06)
[2022-09-24] MEDS ORDERED: SODIUM CHLORIDE 0.9% 1000ML 1,000 ML IV ONE (16:15)
[2022-09-24 16:18] LABS: BASOPHILS % 0.1 % (0.0-1.0); EOSINOPHILS # (AUTO) 0.1 (0.0-0.4); EOSINOPHILS % 0.6 % (0.0-6.0); HEMATOCRIT 39.3 % (34.2-44.1); HEMOGLOBIN 12.7 g/dL (12.0-16.0); LYMPHOCYTES # (AUTO) 2.5 (1.0-3.2); LYMPHOCYTES % 14.2 % (18.0-39.1); MEAN CORPUSCULAR HEMOGLOBIN 31.7 pg (28-32); MEAN CORPUSCULAR HGB CONC 32.3 g/dL (31-35); MONOCYTES # (AUTO) 1.3 (0.2-0.8); MONOCYTES % 7.6 % (4.4-11.3); NEUTROPHILS # (AUTO) 13.4 (2.1-6.9); PLATELET COUNT 251 x10e3/uL (140-360); RED BLOOD COUNT 4.01 x10e6/uL (3.6-5.1); RED CELL DISTRIBUTION WIDTH 12.7 % (11.7-14.4)
[2022-09-24 16:30] LABS: INR 0.95; PROTHROMBIN TIME 12.9 seconds (11.9-14.5)
[2022-09-24 16:39] LABS: ALBUMIN 3.3 g/dL (3.5-5.0); ALBUMIN/GLOBULIN RATIO 0.9 (0.8-2.0); ANION GAP 16.4 mmol/L (8-16); CALCIUM 9.6 mg/dL (8.4-10.2); CREATININE, SERUM 2.26 mg/dL (0.57-1.11)
[2022-09-24 16:40] LABS: POTASSIUM 5.4 mmol/L (3.5-5.1)
[2022-09-24] MEDS ORDERED: ALBUTEROL SULF 0.083% NEB SOLN 3 ML NEB NEB STA (16:43)
[2022-09-24] MEDS ORDERED: DEXTROSE 50% SYRINGE 50 ML IV ONE (16:45)
[2022-09-24] MEDS ORDERED: FUROSEMIDE INJ 10 MG/ML 2 ML VIAL IV ONE (16:45)
[2022-09-24] MEDS ORDERED: INSULIN REGULAR, HUMAN 100 UNIT/1 ML SQ ONE (16:45)
[2022-09-24] MEDS ORDERED: CALCIUM GLUC 1 G/50 ML NACL 50 ML IV ONE (16:45)
[2022-09-24] MEDS ORDERED: Vancomycin IV 1 GM in SODIUM CHLORIDE 0.9% 250ML 250 ML IV SCH (17:00)
[2022-09-24] MEDS ORDERED: SODIUM BICARBONATE 8.4% INJ 50 ML SYR IV ONE (17:00)
[2022-09-24] MEDS ORDERED: SODIUM CHLORIDE FLUSH 10 ML SYR INJ PRN (18:30)
[2022-09-24] MEDS ORDERED: ONDANSETRON HCL INJ 2MG/ML 2ML 2 MG/ML VIAL IV PRN (18:30)
[2022-09-24] MEDS ORDERED: Morphine 4mg INJECTION 4 MG/ML INJ IV PRN (18:30)
[2022-09-24 19:05] LABS: CLARITY,URINE CLEAR (CLEAR); COLOR,URINE YELLOW (YELLOW); KETONES,URINE NEGATIVE (NEGATIVE); LEUKOCYTE ESTERASE ,URINE NEGATIVE (NEGATIVE); NITRITE,URINE NEGATIVE (NEGATIVE); PROTEIN,URINE DIPSTICK 1+ (NEGATIVE); URINE UROBILINOGEN 0.2 mg/dL (0.2 - 1)
[2022-09-24 19:15] LABS: BACTERIA,URINE RARE /HPF
[2022-09-24 22:09] VITALS: BP 143/56
[2022-09-24] MEDS: SODIUM CHLORIDE 0.9% 1000ML 1,000 ML IV SCH (22:59)
[2022-09-25] VITALS (8 sets, daily range): BP systolic 78–143; BP diastolic 51–72
[2022-09-25] MEDS ORDERED: MAGNESIUM/ALUMINUM/SIMETHICONE 30 ML UDC PO PRN (02:15)
[2022-09-25] MEDS ORDERED: HYDRALAZINE HCL 20 MG/ML VIAL IV PRN (02:15)
[2022-09-25] MEDS ORDERED: GUAIFENESIN/DEXTROMETHORPHAN LIQD 5 ML UDC PO PRN (02:15)
[2022-09-25] MEDS ORDERED: MELATONIN 3 MG TAB PO PRN (02:15)
[2022-09-25] MEDS ORDERED: ACETAMINOPHEN 325 MG TAB PO PRN (02:15)
[2022-09-25] MEDS ORDERED: SOD POLYSTYRENE SULFONATE SUSP 15 GM/60 ML BTL PO ONE (02:15)
[2022-09-25] MEDS: ONDANSETRON HCL INJ 2MG/ML 2ML 2 MG/ML VIAL IV PRN (04:26)
[2022-09-25 05:45] LABS: BASOPHILS % 0.2 % (0.0-1.0); EOSINOPHILS # (AUTO) 0.1 (0.0-0.4); EOSINOPHILS % 0.7 % (0.0-6.0); HEMATOCRIT 35.2 % (34.2-44.1); HEMOGLOBIN 11.3 g/dL (12.0-16.0); LYMPHOCYTES # (AUTO) 2.2 (1.0-3.2); LYMPHOCYTES % 15.6 % (18.0-39.1); MEAN CORPUSCULAR HEMOGLOBIN 31.5 pg (28-32); MEAN CORPUSCULAR HGB CONC 32.1 g/dL (31-35); MEAN CORPUSCULAR VOLUME 98.1 fL (81-99); MONOCYTES # (AUTO) 1.3 (0.2-0.8); MONOCYTES % 9.4 % (4.4-11.3); NEUTROPHILS # (AUTO) 10.2 (2.1-6.9); NEUTROPHILS % 72.9 % (38.7-80.0); PLATELET COUNT 209 x10e3/uL (140-360); RED BLOOD COUNT 3.59 x10e6/uL (3.6-5.1); RED CELL DISTRIBUTION WIDTH 12.8 % (11.7-14.4)
[2022-09-25] MEDS: DICYCLOMINE HCL 20 MG TAB PO SCH ×3 (06:07→21:44)
[2022-09-25 06:18] LABS: ANION GAP 14.7 mmol/L (8-16); CREATININE, SERUM 2.14 mg/dL (0.57-1.11); POTASSIUM 4.7 mmol/L (3.5-5.1)
[2022-09-25] MEDS: SODIUM CHLORIDE 0.9% 1000ML 1,000 ML IV SCH (07:30)
[2022-09-25] MEDS: PREDNISONE 5 MG TAB PO SCH (09:25)
[2022-09-25] MEDS: AMIODARONE HCL 200 MG TAB PO SCH ×2 (09:25→20:29)
[2022-09-25] MEDS: MULTIVITAMINS/MINERALS TAB PO SCH (09:25)
[2022-09-25] MEDS: APIXABAN 5 MG TABLET PO SCH ×2 (09:25→16:09)
[2022-09-25] MEDS: GABAPENTIN 300 MG CAP PO SCH ×3 (09:25→20:29)
[2022-09-25] MEDS: METOPROLOL SUCCINATE 50 MG TAB XL PO SCH ×2 (09:27→16:08)
[2022-09-25] MEDS ORDERED: ALPRAZOLAM 0.25 MG TAB PO SCH (21:00)
[2022-09-25] MEDS ORDERED: FUROSEMIDE 40 MG TAB PO SCH (21:00)
[2022-09-25] MEDS ORDERED: ATORVASTATIN 40 MG TAB PO SCH (21:00)
[2022-09-25] MEDS ORDERED: AUGMENTIN 500-1 EACH PO (23:27)
[2022-09-26] VITALS: BP 140/78
[2022-09-26] MEDS: SODIUM CHLORIDE 0.9% 1000ML 1,000 ML IV SCH (02:22)
[2022-09-26 04:00] VITALS: BP 118/58
[2022-09-26] MEDS: DICYCLOMINE HCL 20 MG TAB PO SCH ×2 (05:24→15:21)
[2022-09-26 06:11] LABS: BASOPHILS % 0.2 % (0.0-1.0); EOSINOPHILS # (AUTO) 0.1 (0.0-0.4); EOSINOPHILS % 1.1 % (0.0-6.0); HEMATOCRIT 31.6 % (34.2-44.1); HEMOGLOBIN 10.1 g/dL (12.0-16.0); LYMPHOCYTES % 16.3 % (18.0-39.1); MEAN CORPUSCULAR HEMOGLOBIN 32.7 pg (28-32); MEAN CORPUSCULAR VOLUME 102.3 fL (81-99); MONOCYTES % 8.5 % (4.4-11.3); NEUTROPHILS # (AUTO) 8.7 (2.1-6.9); NEUTROPHILS % 72.6 % (38.7-80.0); PLATELET COUNT 163 x10e3/uL (140-360); RED BLOOD COUNT 3.09 x10e6/uL (3.6-5.1); RED CELL DISTRIBUTION WIDTH 13.2 % (11.7-14.4)
[2022-09-26 06:31] LABS: ANION GAP 13.2 mmol/L (8-16); CALCIUM 8.6 mg/dL (8.4-10.2); CREATININE, SERUM 1.89 mg/dL (0.57-1.11); POTASSIUM 4.2 mmol/L (3.5-5.1)
[2022-09-26] MEDS: AMIODARONE HCL 200 MG TAB PO SCH (09:23)
[2022-09-26] MEDS: APIXABAN 5 MG TABLET PO SCH ×2 (09:23→17:40)
[2022-09-26] MEDS: MULTIVITAMINS/MINERALS TAB PO SCH (09:24)
[2022-09-26] MEDS: PREDNISONE 5 MG TAB PO SCH (09:24)
[2022-09-26] MEDS: METOPROLOL SUCCINATE 50 MG TAB XL PO SCH ×2 (09:24→17:40)
[2022-09-26] MEDS: GABAPENTIN 300 MG CAP PO SCH ×2 (09:24→15:21)
[2022-09-26 09:31] VITALS: BP 106/68
[2022-09-26 12:00] VITALS: BP 106/64
[2022-09-26] MEDS ORDERED: ONDANSETRON HCL 4 MG ORAL DISINTEGRATING TAB PO PRN (14:00)
[2022-09-26] MEDS ORDERED: PANTOPRAZOLE SOD 40 MG TABEC PO SCH (16:30)
[2022-09-26 16:47] VITALS: BP 147/62
== END 2022-09-26 18:02 | disposition home or self-care (01) ==
LOC: ER 15:30 → INTOOBSV 18:25 → ERHOLD 18:25 → MED/SURG2 21:35
PROVIDERS: ADMIT Internal Medicine Critical Care Medicine; ATTEND Internal Medicine Critical Care Medicine
DX: N17.9 Acute kidney failure, unspecified (principal); E87.5 Hyperkalemia; I69.393 Ataxia following cerebral infarction; I48.20 Chronic atrial fibrillation, unspecified; Z79.01 Long term (current) use of anticoagulants; E78.5 Hyperlipidemia, unspecified; Z86.711 Personal history of pulmonary embolism; I11.0 Hypertensive heart disease with heart failure; I50.32 Chronic diastolic (congestive) heart failure; M06.9 Rheumatoid arthritis, unspecified; I25.10 Atherosclerotic heart disease of native coronary artery without angina pectoris; K21.9 Gastro-esophageal reflux disease without esophagitis; Z20.822 Contact with and (suspected) exposure to COVID-19; E11.22 Type 2 diabetes mellitus with diabetic chronic kidney disease; I13.0 Hypertensive heart and chronic kidney disease with heart failure and stage 1 through stage 4 chronic kidney disease, or unspecified chronic kidney disease; N18.30 Chronic kidney disease, stage 3 unspecified; E88.09 Other disorders of plasma-protein metabolism, not elsewhere classified; D84.9 Immunodeficiency, unspecified
CPT/HCPCS: 36415 ×3; 51700; 70450; 74176; 80048 ×2; 80053; 81001; 82150; 83605; 83690; 84484; 85025 ×3; 85610; 87040; 93005; 95819; 97116; 97161; 99284; C9113 ×3; G0378 ×3; J1817; J1940; J2405 ×2; J2543 ×3; J3370; J7030; J7050; J7512 ×2; J7799; S0164; U0002

== ENCOUNTER 2023-01-06 21:46 | Emergency (ER) | payer MEDICARE ==
[~2023-01-06] VITALS: Ht 315 cm; Wt 91.6 kg
[~2023-01-06 21:46] MED LIST changes: +AUGMENTIN 500-1 EACH PO
[2023-01-06 22:47] LABS: BASOPHILS # (AUTO) 0.1 (0.0-0.1); BASOPHILS % 0.5 % (0.0-1.0); CLARITY,URINE SL CLOUDY (CLEAR); COLOR,URINE YELLOW (YELLOW); EOSINOPHILS # (AUTO) 0.1 (0.0-0.4); EOSINOPHILS % 1.1 % (0.0-6.0); HEMATOCRIT 35.7 % (34.2-44.1); HEMOGLOBIN 11.6 g/dL (12.0-16.0); KETONES,URINE 1+ (NEGATIVE); LEUKOCYTE ESTERASE ,URINE NEGATIVE (NEGATIVE); LYMPHOCYTES # (AUTO) 3.1 (1.0-3.2); LYMPHOCYTES % 25.9 % (18.0-39.1); MEAN CORPUSCULAR HEMOGLOBIN 28.4 pg (28-32); MEAN CORPUSCULAR HGB CONC 32.5 g/dL (31-35); MEAN CORPUSCULAR VOLUME 87.5 fL (81-99); MONOCYTES # (AUTO) 1.1 (0.2-0.8); MONOCYTES % 9.1 % (4.4-11.3); NEUTROPHILS # (AUTO) 7.4 (2.1-6.9); NEUTROPHILS % 62.6 % (38.7-80.0); NITRITE,URINE NEGATIVE (NEGATIVE); PLATELET COUNT 280 x10e3/uL (140-360); PROTEIN,URINE DIPSTICK 1+ (NEGATIVE); RED BLOOD COUNT 4.08 x10e6/uL (3.6-5.1); RED CELL DISTRIBUTION WIDTH 14.6 % (11.7-14.4); URINE UROBILINOGEN 0.2 mg/dL (0.2 - 1)
[2023-01-06 22:54] LABS: BACTERIA,URINE FEW /HPF; EPITHELIAL CELLS,URINE MANY /LPF; RBC,URINE 0-5 /HPF (0-5); WBC,URINE (MAN) 0-5 /HPF (0-5)
[2023-01-06 23:04] LABS: ALBUMIN 3.3 g/dL (3.5-5.0); ALBUMIN/GLOBULIN RATIO 0.9 (0.8-2.0); ANION GAP 18.2 mmol/L (8-16); CALCIUM 9.2 mg/dL (8.4-10.2); CREATININE, SERUM 1.46 mg/dL (0.57-1.11); POTASSIUM 3.2 mmol/L (3.5-5.1)
[2023-01-07] MEDS ORDERED: Morphine 2mg Syringe 2 MG/ML SYR ONE (00:39)
[2023-01-07] MEDS ORDERED: Morphine 2mg Syringe 2 MG/ML SYR IV ONE (00:45)
[2023-01-07] MEDS ORDERED: CYCLOBENZAPRINE10 MG PO (01:15)
[2023-01-07 01:21] VITALS: BP 147/81; PULSE 70; RESP 15; TEMP 98.5; O2SAT 99
== END 2023-01-07 01:29 | disposition home or self-care (01) ==
LOC: ER 21:55
DX: R19.7 Diarrhea, unspecified (principal); R11.10 Vomiting, unspecified; R10.13 Epigastric pain; I13.0 Hypertensive heart and chronic kidney disease with heart failure and stage 1 through stage 4 chronic kidney disease, or unspecified chronic kidney disease; N18.9 Chronic kidney disease, unspecified; I50.9 Heart failure, unspecified; I48.91 Unspecified atrial fibrillation; Z79.01 Long term (current) use of anticoagulants; E78.5 Hyperlipidemia, unspecified; Z79.899 Other long term (current) drug therapy
CPT/HCPCS: 36415; 74176; 80053; 81001; 83690; 85025; 99284; J2270

== ENCOUNTER 2024-04-19 21:30 | Emergency (ER) | payer MEDICARE ==
[~2024-04-19] VITALS: Ht 162.6 cm; Wt 79.4 kg
[~2024-04-19 21:30] MED LIST changes: +CEFDINIR300 MG PO; +ONDANSETRON ODT4 MG PO; +VITAMIN D250 MC1 PO
[2024-04-19 21:38] VITALS: PULSE 66; RESP 18; TEMP 97.9
[2024-04-19 22:01] LABS: BASOPHILS # (AUTO) 0.1 (0.0-0.1); BASOPHILS % 0.9 % (0.0-1.0); EOSINOPHILS # (AUTO) 0.2 (0.0-0.4); EOSINOPHILS % 2.7 % (0.0-6.0); HEMOGLOBIN 11.6 g/dL (12.0-16.0); LYMPHOCYTES % 38.2 % (18.0-39.1); MEAN CORPUSCULAR HEMOGLOBIN 29.4 pg (28-32); MEAN CORPUSCULAR HGB CONC 32.2 g/dL (31-35); MEAN CORPUSCULAR VOLUME 91.4 fL (81-99); MONOCYTES # (AUTO) 0.7 (0.2-0.8); MONOCYTES % 8.5 % (4.4-11.3); NEUTROPHILS # (AUTO) 3.8 (2.1-6.9); NEUTROPHILS % 49.6 % (38.7-80.0); PLATELET COUNT 219 x10e3/uL (140-360); RED BLOOD COUNT 3.94 x10e6/uL (3.6-5.1); RED CELL DISTRIBUTION WIDTH 14.7 % (11.7-14.4); WHITE BLOOD COUNT 7.72 x10e3/uL (4.8-10.8)
[2024-04-19] MEDS: FAMOTIDINE 20 MG/2 ML VIAL IV STA (22:18)
[2024-04-19] MEDS: ONDANSETRON HCL INJ 2MG/ML 2ML 2 MG/ML VIAL IV STA (22:18)
[2024-04-19 23:21] LABS: ALBUMIN 3.5 g/dL (3.5-5.0); BILIRUBIN,TOTAL 0.5 mg/dL (0.2-1.2); CALCIUM 8.7 mg/dL (8.4-10.2)
[2024-04-19] MEDS ORDERED: IOPAMIDOL 370 MG/ML 100 ML INFUS..BTL INJ ONE (23:47)
[2024-04-20] MEDS ORDERED: ONDANSETRON ODT4 MG PO (01:52)
[2024-04-20] MEDS ORDERED: PROTONIX20 MG PO (01:58)
[2024-04-20 02:19] VITALS: BP 180/85; PULSE 59; RESP 20; TEMP 98.1; O2SAT 100
[2024-04-20] MEDS ORDERED: AMIODARONE HCL200 MG PO (21:42)
== END 2024-04-20 02:25 | disposition home or self-care (01) ==
LOC: ER 21:38
DX: R11.2 Nausea with vomiting, unspecified (principal); R07.89 Other chest pain; R10.12 Left upper quadrant pain; I10 Essential (primary) hypertension; E78.5 Hyperlipidemia, unspecified; I50.9 Heart failure, unspecified; I48.91 Unspecified atrial fibrillation; I25.10 Atherosclerotic heart disease of native coronary artery without angina pectoris; Z11.52 Encounter for screening for COVID-19; R94.31 Abnormal electrocardiogram [ECG] [EKG]; Z86.79 Personal history of other diseases of the circulatory system
CPT/HCPCS: 36415; 71045; 74177; 80053; 82550; 83690; 83880; 84484; 85025; 93005; 99284; J2405; Q9967; U0002

== ENCOUNTER 2024-04-20 18:18 | Inpatient (IN) | payer MEDICARE ==
[~2024-04-20] VITALS: Ht 162.6 cm; Wt 79.4 kg
[~2024-04-20 18:18] MED LIST changes: +PROTONIX20 MG PO
[2024-04-20 18:40] VITALS: TEMP 98.2
[2024-04-20 18:58] LABS: BASOPHILS # (AUTO) 0.1 (0.0-0.1); BASOPHILS % 0.6 % (0.0-1.0); EOSINOPHILS # (AUTO) 0.2 (0.0-0.4); EOSINOPHILS % 3.1 % (0.0-6.0); HEMATOCRIT 36.5 % (34.2-44.1); HEMOGLOBIN 11.4 g/dL (12.0-16.0); LYMPHOCYTES # (AUTO) 2.3 (1.0-3.2); LYMPHOCYTES % 29.7 % (18.0-39.1); MEAN CORPUSCULAR HEMOGLOBIN 29.2 pg (28-32); MEAN CORPUSCULAR HGB CONC 31.2 g/dL (31-35); MEAN CORPUSCULAR VOLUME 93.4 fL (81-99); MONOCYTES # (AUTO) 0.7 (0.2-0.8); MONOCYTES % 9.3 % (4.4-11.3); NEUTROPHILS # (AUTO) 4.4 (2.1-6.9); PLATELET COUNT 195 x10e3/uL (140-360); RED BLOOD COUNT 3.91 x10e6/uL (3.6-5.1); RED CELL DISTRIBUTION WIDTH 14.8 % (11.7-14.4); WHITE BLOOD COUNT 7.74 x10e3/uL (4.8-10.8)
[2024-04-20 19:17] LABS: ALBUMIN 3.5 g/dL (3.5-5.0); ALBUMIN/GLOBULIN RATIO 1.1 (0.8-2.0); ANION GAP 9.9 mmol/L (8-16); BILIRUBIN,TOTAL 0.4 mg/dL (0.2-1.2); CALCIUM 8.6 mg/dL (8.4-10.2); POTASSIUM 4.9 mmol/L (3.5-5.1); TOTAL PROTEIN 6.8 g/dL (6.5-8.1)
[2024-04-20] MEDS: SODIUM CHLORIDE 0.9% 1000ML 1,000 ML IV STA (19:31)
[2024-04-20] MEDS: ONDANSETRON HCL INJ 2MG/ML 2ML 2 MG/ML VIAL IV PRN (19:32)
[2024-04-20 20:48] VITALS: PULSE 59; RESP 18
[2024-04-20] MEDS ORDERED: AMIODARONE HCL200 MG PO (21:42)
[2024-04-21] VITALS (10 sets, daily range): BP systolic 138–174; BP diastolic 50–73; PULSE 62–74; RESP 17–18; TEMP 98–98.9; O2SAT 98–100
[2024-04-21] MEDS ORDERED: DICYCLOMINE HCL 20 MG TAB PO PRN (01:15)
[2024-04-21] MEDS ORDERED: FLUTICASONE PROPIONATE NASAL SPRAY NS PRN (01:15)
[2024-04-21] MEDS: METOCLOPRAMIDE HCL 10 MG/2ML VIAL IV STA (01:49)
[2024-04-21] MEDS: HYDRALAZINE HCL 20 MG/ML VIAL IV PRN (02:26)
[2024-04-21] MEDS: ACETAMINOPHEN 325 MG TAB PO PRN (02:27)
[2024-04-21 03:11] LABS: CLARITY,URINE SL CLOUDY (CLEAR); COLOR,URINE YELLOW (YELLOW); LEUKOCYTE ESTERASE ,URINE NEGATIVE (NEGATIVE); PH,URINE 7 (5 - 7)
[2024-04-21 03:12] LABS: BILIRUBIN,URINE NEGATIVE (NEGATIVE); GLUCOSE, URINE NEGATIVE (NEGATIVE); KETONES,URINE TRACE (NEGATIVE); NITRITE,URINE NEGATIVE (NEGATIVE); PROTEIN,URINE DIPSTICK 1+ (NEGATIVE); URINE UROBILINOGEN 0.2 mg/dL (0.2 - 1)
[2024-04-21] MEDS: ALPRAZOLAM 0.25 MG TAB PO SCH (03:38)
[2024-04-21 03:44] LABS: BACTERIA,URINE MODERATE /HPF; EPITHELIAL CELLS,URINE FEW /LPF; RBC,URINE 0-5 /HPF (0-5); WBC,URINE (MAN) 0-5 /HPF (0-5)
[2024-04-21] MEDS: METOCLOPRAMIDE HCL 10 MG/2ML VIAL IV SCH (05:49)
[2024-04-21] MEDS: APIXABAN 5 MG TABLET PO SCH (09:00)
[2024-04-21] MEDS: AMIODARONE HCL 200 MG TAB PO SCH (09:46)
[2024-04-21] MEDS: SUCRALFATE 1 GM TAB PO SCH (09:46)
[2024-04-21] MEDS: FOLIC ACID 1 MG TAB PO SCH (09:47)
[2024-04-21] MEDS: FUROSEMIDE 40 MG TAB PO SCH (09:47)
[2024-04-21] MEDS: METOPROLOL SUCCINATE 50 MG TAB XL PO SCH (09:47)
[2024-04-21] MEDS: GABAPENTIN 300 MG CAP PO SCH (09:47)
[2024-04-21] MEDS: DEXTROSE 5%/0.45% SOD CHL 1,000 ML IV SCH (14:13)
[2024-04-21] MEDS ORDERED: PROPOFOL IV EMULSION 10 MG/ML 20 ML VIAL ONE (14:18)
[2024-04-21] MEDS ORDERED: LIDOCAINE HCL 2% LOCAL INJ 5 ML SDV VIAL INJ ONE (14:18)
[2024-04-22] VITALS (8 sets, daily range): BP systolic 150–169; BP diastolic 59–69; PULSE 60–65; RESP 17–18; TEMP 97.3–98.5; O2SAT 95–100
[2024-04-22] MEDS ORDERED: IOPAMIDOL 370 MG/ML 100 ML INFUS..BTL INJ ONE (18:17)
[2024-04-22] MEDS: DICYCLOMINE HCL 20 MG TAB PO STA (23:44)
[2024-04-23] VITALS (7 sets, daily range): BP systolic 149–167; BP diastolic 49–78; PULSE 58–67; RESP 17–21; TEMP 97.5–98.4; O2SAT 99–100
[2024-04-23] MEDS: DICYCLOMINE HCL 20 MG TAB PO SCH (09:34)
[2024-04-24] VITALS: BP 160/61; PULSE 66; RESP 20; TEMP 98.2; O2SAT 100
[2024-04-24 04:00] VITALS: BP 179/81; PULSE 67; RESP 21; TEMP 97.9; O2SAT 98
[2024-04-24 08:25] VITALS: BP 136/63; PULSE 68; RESP 18; TEMP 98; O2SAT 98
[2024-04-24 11:44] VITALS: BP 140/60; PULSE 64; RESP 18; TEMP 97.5; O2SAT 100
== END 2024-04-24 13:36 | disposition home or self-care (01) | DRG 392 ==
LOC: ER 18:27 → ERHOLD 18:49 → MED/SURG3 21:27
PROVIDERS: ADMIT Internal Medicine; ATTEND Internal Medicine
PROC: 0DB78ZX Excision of Stomach, Pylorus, Via Natural or Artificial Opening Endoscopic, Diagnostic (ICD-10-PCS; 2024-04-21)
PROC: 0D757ZZ Dilation of Esophagus, Via Natural or Artificial Opening (ICD-10-PCS; principal; 2024-04-21 16:40)
PROC: 0DB38ZX Excision of Lower Esophagus, Via Natural or Artificial Opening Endoscopic, Diagnostic (ICD-10-PCS; 2024-04-21 16:40)
PROC: 02HV33Z Insertion of Infusion Device into Superior Vena Cava, Percutaneous Approach (ICD-10-PCS; 2024-04-22)
PROC: B548ZZA Ultrasonography of Superior Vena Cava, Guidance (ICD-10-PCS; 2024-04-22)
DX: K20.90 Esophagitis, unspecified without bleeding (principal); I50.32 Chronic diastolic (congestive) heart failure; G45.9 Transient cerebral ischemic attack, unspecified; K29.50 Unspecified chronic gastritis without bleeding; K44.9 Diaphragmatic hernia without obstruction or gangrene; K31.7 Polyp of stomach and duodenum; R13.10 Dysphagia, unspecified; N30.90 Cystitis, unspecified without hematuria; K57.30 Diverticulosis of large intestine without perforation or abscess without bleeding; I11.0 Hypertensive heart disease with heart failure; I25.10 Atherosclerotic heart disease of native coronary artery without angina pectoris; Z95.1 Presence of aortocoronary bypass graft; I35.0 Nonrheumatic aortic (valve) stenosis; E78.5 Hyperlipidemia, unspecified; I48.0 Paroxysmal atrial fibrillation; I87.2 Venous insufficiency (chronic) (peripheral); M19.91 Primary osteoarthritis, unspecified site; R63.4 Abnormal weight loss; Z68.30 Body mass index [BMI] 30.0-30.9, adult; Z86.73 Personal history of transient ischemic attack (TIA), and cerebral infarction without residual deficits; Z86.711 Personal history of pulmonary embolism; Z79.01 Long term (current) use of anticoagulants; Z90.49 Acquired absence of other specified parts of digestive tract
CPT/HCPCS: 36415; 36569; 43239; 43450; 70450; 70496; 70498; 71045; 80053; 81001; 83690; 85025; 88305; 88342; 93005; 99252; 99283; J0360; J2001; J2405; J2470; J2765; J7030; Q9967

== ENCOUNTER 2024-10-11 14:01 | Inpatient (IN) | payer MEDICARE ==
[~2024-10-11] VITALS: Ht 162.6 cm; Wt 68.0 kg
[2024-10-11] MEDS ORDERED: SODIUM CHLORIDE FLUSH 10 ML SYR IV PRN (14:15)
[2024-10-11 14:51] LABS: BASOPHILS # (AUTO) 0.1 (0.0-0.1); BASOPHILS % 0.7 % (0.0-1.0); EOSINOPHILS # (AUTO) 0.3 (0.0-0.4); HEMATOCRIT 39.6 % (34.2-44.1); HEMOGLOBIN 13.4 g/dL (12.0-16.0); LYMPHOCYTES # (AUTO) 2.1 (1.0-3.2); LYMPHOCYTES % 30.5 % (18.0-39.1); MEAN CORPUSCULAR HEMOGLOBIN 30.7 pg (28-32); MEAN CORPUSCULAR HGB CONC 33.8 g/dL (31-35); MEAN CORPUSCULAR VOLUME 90.6 fL (81-99); MONOCYTES # (AUTO) 0.8 (0.2-0.8); MONOCYTES % 11.6 % (4.4-11.3); NEUTROPHILS # (AUTO) 3.6 (2.1-6.9); NEUTROPHILS % 53.1 % (38.7-80.0); PLATELET COUNT 228 x10e3/uL (140-360); RED BLOOD COUNT 4.37 x10e6/uL (3.6-5.1); RED CELL DISTRIBUTION WIDTH 14.4 % (11.7-14.4); WHITE BLOOD COUNT 6.72 x10e3/uL (4.8-10.8)
[2024-10-11] MEDS: ASPIRIN 81 MG CHEW TAB PO ONE (15:03)
[2024-10-11] MEDS: ONDANSETRON HCL INJ 2MG/ML 2ML 2 MG/ML VIAL IV STA (15:03)
[2024-10-11] MEDS: Morphine 4mg INJECTION 4 MG/ML INJ IV ONE (15:03)
[2024-10-11 15:19] LABS: ALBUMIN 3.8 g/dL (3.5-5.0); ANION GAP 15.7 mmol/L (8-16); BILIRUBIN,TOTAL 0.7 mg/dL (0.2-1.2); CALCIUM 9.1 mg/dL (8.4-10.2); CREATININE, SERUM 1.72 mg/dL (0.57-1.11); POTASSIUM 3.7 mmol/L (3.5-5.1); TOTAL PROTEIN 7.6 g/dL (6.5-8.1)
[2024-10-11 15:26] LABS: TROPONIN I 0.01 ng/mL (0-0.300)
[2024-10-11] MEDS: SODIUM CHLORIDE 0.9% 1000ML 1,000 ML IV SCH (16:45)
[2024-10-11] MEDS ORDERED: SODIUM CHLORIDE FLUSH 10 ML SYR INJ PRN (16:45)
[2024-10-11 16:49] VITALS: PULSE 87; RESP 16; TEMP 97.9
[2024-10-11] MEDS: SODIUM CHLORIDE 0.9% 500ML 500 ML IV ONE (17:11)
[2024-10-11 18:42] VITALS: BP 106/53; PULSE 86; RESP 18; TEMP 97.7; O2SAT 95
[2024-10-11 20:00] VITALS: BP 102/55; PULSE 83; RESP 16; TEMP 97.2; O2SAT 98
[2024-10-11] MEDS ORDERED: VITAMIN D31 GM PO (20:30)
[2024-10-11] MEDS ORDERED: ATORVASTATIN CA20 MG PO (20:32)
[2024-10-11] MEDS ORDERED: TRIAMTERENE-HCTZ1 EA PO (20:34)
[2024-10-11] MEDS ORDERED: ASPIRIN81 MG PO (20:35)
[2024-10-11] MEDS ORDERED: FUROSEMIDE40 MG PO (20:37)
[2024-10-11 20:46] VITALS: BP 102/55; PULSE 83; RESP 16; TEMP 97.2; O2SAT 98
[2024-10-12] VITALS (12 sets, daily range): BP systolic 88–122; BP diastolic 45–86; PULSE 80–143; RESP 14–24; TEMP 97–98.4; O2SAT 97–100
[2024-10-12 01:40] LABS: TROPONIN I 0.007 ng/mL (0-0.300)
[2024-10-12 05:15] LABS: BASOPHILS # (AUTO) 0.1 (0.0-0.1); BASOPHILS % 0.9 % (0.0-1.0); EOSINOPHILS # (AUTO) 0.4 (0.0-0.4); EOSINOPHILS % 5.6 % (0.0-6.0); HEMATOCRIT 38.5 % (34.2-44.1); HEMOGLOBIN 12.6 g/dL (12.0-16.0); LYMPHOCYTES # (AUTO) 2.2 (1.0-3.2); LYMPHOCYTES % 33.7 % (18.0-39.1); MEAN CORPUSCULAR HEMOGLOBIN 30.2 pg (28-32); MEAN CORPUSCULAR HGB CONC 32.7 g/dL (31-35); MEAN CORPUSCULAR VOLUME 92.3 fL (81-99); MONOCYTES # (AUTO) 0.8 (0.2-0.8); MONOCYTES % 12.4 % (4.4-11.3); NEUTROPHILS % 47.1 % (38.7-80.0); PLATELET COUNT 205 x10e3/uL (140-360); RED BLOOD COUNT 4.17 x10e6/uL (3.6-5.1); RED CELL DISTRIBUTION WIDTH 14.4 % (11.7-14.4); WHITE BLOOD COUNT 6.38 x10e3/uL (4.8-10.8)
[2024-10-12 05:46] LABS: ALBUMIN 3.5 g/dL (3.5-5.0); ALBUMIN/GLOBULIN RATIO 1.1 (0.8-2.0); ANION GAP 16.8 mmol/L (8-16); BILIRUBIN,TOTAL 0.6 mg/dL (0.2-1.2); CALCIUM 8.4 mg/dL (8.4-10.2); CREATININE, SERUM 1.68 mg/dL (0.57-1.11); POTASSIUM 3.8 mmol/L (3.5-5.1); TOTAL PROTEIN 6.8 g/dL (6.5-8.1)
[2024-10-12 09:18] LABS: TROPONIN I 0.02 ng/mL (0-0.300)
[2024-10-12] MEDS: AMIODARONE HCL 200 MG TAB PO SCH (18:04)
[2024-10-12] MEDS: ASPIRIN 81 MG CHEW TAB PO SCH (18:04)
[2024-10-12] MEDS: METOPROLOL SUCCINATE 50 MG TAB XL PO SCH (18:04)
[2024-10-12] MEDS: APIXABAN 5 MG TABLET PO SCH (18:04)
[2024-10-12] MEDS: METOPROLOL TARTRATE INJ 1 MG/ML VIAL IV ONE (20:25)
[2024-10-12] MEDS: METOPROLOL TARTRATE INJ 1 MG/ML VIAL ONE (20:51)
[2024-10-12] MEDS: AMIODARONE HCL 150 MG/100 ML BAG IV ONE (22:02)
[2024-10-12] MEDS: AMIODARONE 900MG 500 ML IV ONE (22:03)
[2024-10-12] MEDS: AMIODARONE HCL 900 MG in DEXTROSE 5 % 500ML BOTTLE 482 ML IV SCH (22:03)
[2024-10-12] MEDS: ALPRAZOLAM 0.25 MG TAB PO SCH (22:42)
[2024-10-12] MEDS: ATORVASTATIN 20 MG TAB PO SCH (22:42)
[2024-10-13] VITALS (27 sets, daily range): BP systolic 105–138; BP diastolic 46–74; PULSE 78–91; RESP 12–27; TEMP 97.5–98.1; O2SAT 98–100
[2024-10-13] MEDS: ACETAMINOPHEN 325 MG TAB PO PRN (08:09)
[2024-10-13] MEDS: AMIODARONE HCL 200 MG TAB PO SCH (17:43)
[2024-10-13] MEDS: ONDANSETRON HCL INJ 2MG/ML 2ML 2 MG/ML VIAL IV PRN (17:44)
[2024-10-14] VITALS (47 sets, daily range): BP systolic 77–149; BP diastolic 42–115; PULSE 37–173; RESP 10–34; TEMP 97.4–98.2; O2SAT 98–100
[2024-10-14 07:39] LABS: ALBUMIN 3.4 g/dL (3.5-5.0); ANION GAP 14.4 mmol/L (8-16); BILIRUBIN,TOTAL 0.9 mg/dL (0.2-1.2); CALCIUM 8.2 mg/dL (8.4-10.2); CREATININE, SERUM 1.19 mg/dL (0.57-1.11); TOTAL PROTEIN 6.8 g/dL (6.5-8.1)
[2024-10-14 07:43] LABS: POTASSIUM 3.4 mmol/L (3.5-5.1)
[2024-10-14] MEDS: SUCRALFATE 1 GM TAB PO SCH (12:07)
[2024-10-14] MEDS ORDERED: AMIODARONE HCL 900 MG in DEXTROSE 5 % 500ML BOTTLE 482 ML IV SCH (13:30)
[2024-10-14] MEDS ORDERED: Morphine 4mg INJECTION 4 MG/ML INJ IV PRN (13:45)
[2024-10-14] MEDS ORDERED: AMIODARONE 900MG 900 MG in Premix Bag 1 BAG IV SCH (13:45)
[2024-10-14] MEDS: AMIODARONE 900MG 500 ML IV ONE (14:02)
[2024-10-14] MEDS: MIDAZOLAM HCL 5 MG/ML VIAL ONE (14:34)
[2024-10-14] MEDS: MIDAZOLAM HCL 2 MG/2 ML VIAL IV ONE (14:35)
[2024-10-14] MEDS: AMIODARONE 900MG 500 ML IV SCH (14:36)
[2024-10-14] MEDS ORDERED: METOPROLOL TARTRATE INJ 1 MG/ML VIAL IV PRN (16:45)
[2024-10-14] MEDS: GABAPENTIN 400 MG CAP PO SCH (16:49)
[2024-10-14] MEDS: METOPROLOL SUCCINATE 25 MG TAB XL PO ONE (17:53)
[2024-10-15] VITALS (26 sets, daily range): BP systolic 108–156; BP diastolic 49–80; PULSE 55–74; RESP 12–21; TEMP 97.7–98.2; O2SAT 98–100
[2024-10-15] MEDS: METOPROLOL SUCCINATE 25 MG TAB XL PO SCH ×2 (08:34→21:00)
[2024-10-15] MEDS: PANTOPRAZOLE SOD 40 MG TABEC PO SCH (08:34)
[2024-10-15] MEDS: AMIODARONE HCL 200 MG TAB PO SCH (16:04)
[2024-10-16] VITALS (12 sets, daily range): BP systolic 112–131; BP diastolic 47–97; PULSE 57–63; RESP 12–19; TEMP 97.6–98.6; O2SAT 96–100
[2024-10-16] MEDS ORDERED: METOPROLOL SUCC25 MG PO (08:52)
[2024-10-16] MEDS ORDERED: AMIODARONE HCL400 MG PO (08:54)
[2024-10-16] MEDS ORDERED: FUROSEMIDE40 MG PO (09:06)
== END 2024-10-16 09:42 | disposition home or self-care (01) | DRG 280 ==
LOC: ER 14:18 → ERHOLD 16:45 → MED/SURG 18:16 → ICU 10-12 22:00 → OBSVTOIN 10-13 08:19
PROVIDERS: ADMIT Internal Medicine; ATTEND Internal Medicine
DX: I48.0 Paroxysmal atrial fibrillation (principal); I11.0 Hypertensive heart disease with heart failure; I50.31 Acute diastolic (congestive) heart failure; I21.9 Acute myocardial infarction, unspecified; J98.11 Atelectasis; N17.9 Acute kidney failure, unspecified; I44.0 Atrioventricular block, first degree; I35.1 Nonrheumatic aortic (valve) insufficiency; I71.21 Aneurysm of the ascending aorta, without rupture; I25.10 Atherosclerotic heart disease of native coronary artery without angina pectoris; E78.5 Hyperlipidemia, unspecified; R53.81 Other malaise; M19.90 Unspecified osteoarthritis, unspecified site; Z79.01 Long term (current) use of anticoagulants; Z79.82 Long term (current) use of aspirin; Z79.51 Long term (current) use of inhaled steroids; Z98.61 Coronary angioplasty status; Z90.49 Acquired absence of other specified parts of digestive tract; E66.9 Obesity, unspecified; Z68.25 Body mass index [BMI] 25.0-25.9, adult
CPT/HCPCS: 36415; 71045; 80053; 82550; 83735; 83880; 84484; 85025; 85379; 93005; 93306; 94760; 94799; 99284; G0378; J2250; J2270; J2405; J2470; J7040

== ENCOUNTER → 2024-12-02 | Outpatient (REF) | payer MEDICARE ==
[~2024-12-02] MED LIST changes: +AMIODARONE HCL400 MG PO; +ASPIRIN81 MG PO; +ATORVASTATIN CA20 MG PO; +METOPROLOL SUCC25 MG PO; +VITAMIN D31 GM PO
== END ==
LOC: MAMMO 13:20
PROVIDERS: ATTEND Internal Medicine
DX: Z12.31 Encounter for screening mammogram for malignant neoplasm of breast (principal); M85.88 Other specified disorders of bone density and structure, other site
CPT/HCPCS: 77067; 77080

== ENCOUNTER 2025-02-06 17:28 | Emergency (ER) | payer MEDICARE ==
[~2025-02-06] VITALS: Ht 162.6 cm; Wt 68.0 kg
[2025-02-06 17:45] VITALS: RESP 16; TEMP 98.4
[2025-02-06 18:12] LABS: BASOPHILS % 0.4 % (0.0-1.0); EOSINOPHILS % 1.1 % (0.0-6.0); LYMPHOCYTES % 26.1 % (18.0-39.1); MONOCYTES % 8.8 % (4.4-11.3); NEUTROPHILS % 63.3 % (38.7-80.0); RED CELL DISTRIBUTION WIDTH 14.3 % (11.7-14.4)
[2025-02-06 18:37] LABS: EST GLOMERULAR FILTRATION RATE 41.0 ML/MIN (>=60)
[2025-02-06] MEDS: METOCLOPRAMIDE HCL 10 MG/2ML VIAL IV ONE (18:46)
[2025-02-06] MEDS: SUCRALFATE 1 GM TAB PO STA (18:46)
[2025-02-06] MEDS: SODIUM CHLORIDE 0.9% 1000ML 1,000 ML IV ONE (18:46)
[2025-02-06] MEDS ORDERED: IOPAMIDOL 370 MG/ML 100 ML INFUS..BTL INJ ONE (18:54)
[2025-02-06 20:30] VITALS: PULSE 63; O2SAT 100
[2025-02-06] MEDS ORDERED: CARAFATE1 GM PO (20:38)
== END 2025-02-06 21:00 | disposition home or self-care (01) ==
LOC: ER 18:03
DX: R10.13 Epigastric pain (principal); R11.0 Nausea; K21.9 Gastro-esophageal reflux disease without esophagitis; I10 Essential (primary) hypertension; I50.9 Heart failure, unspecified; I48.91 Unspecified atrial fibrillation; I25.10 Atherosclerotic heart disease of native coronary artery without angina pectoris; E78.5 Hyperlipidemia, unspecified; M06.9 Rheumatoid arthritis, unspecified; R94.31 Abnormal electrocardiogram [ECG] [EKG]; Z87.19 Personal history of other diseases of the digestive system
CPT/HCPCS: 36415; 74176; 80053; 83690; 85025; 93005; 99284; J2765; J7030; Q9967

== ENCOUNTER → 2025-03-04 | Day surgery (SDC) | payer MEDICARE ==
[~2025-03-04] MED LIST changes: +FENTANYL CITRATE/PF 100MCG/2 ML INJ ONE; +LIDOCAINE HCL 2% LOCAL INJ 5 ML SDV VIAL INJ ONE; +METOCLOPRAMIDE HCL 10 MG/2ML VIAL ONE; +PRAVASTATIN SOD40 MG; +PROPOFOL IV EMULSION 10 MG/ML 20 ML VIAL ONE
[2025-03-04] MEDS: LACTATED RINGER'S 1,000 ML ONE (06:11)
[2025-03-04 08:52] VITALS: TEMP 97.9
[2025-03-04 09:05] VITALS: BP 120/60; PULSE 67; RESP 16; O2SAT 99
== END | disposition home or self-care (01) ==
LOC: OR 05:30
PROVIDERS: ATTEND Internal Medicine Gastroenterology
DX: K44.9 Diaphragmatic hernia without obstruction or gangrene (principal); K31.7 Polyp of stomach and duodenum; K29.70 Gastritis, unspecified, without bleeding; I10 Essential (primary) hypertension; F41.9 Anxiety disorder, unspecified; M19.90 Unspecified osteoarthritis, unspecified site; Z90.49 Acquired absence of other specified parts of digestive tract; Z79.01 Long term (current) use of anticoagulants; Z79.899 Other long term (current) drug therapy; Z80.0 Family history of malignant neoplasm of digestive organs
CPT/HCPCS: 43239; 43251; J2003; J2470; J2704; J2765; J3010; J7121

== ENCOUNTER 2025-05-26 13:25 | Emergency (ER) | payer MEDICARE ==
[~2025-05-26] VITALS: Ht 162.6 cm; Wt 68.7 kg
[~2025-05-26 13:25] MED LIST changes: -FENTANYL CITRATE/PF 100MCG/2 ML INJ ONE; -LIDOCAINE HCL 2% LOCAL INJ 5 ML SDV VIAL INJ ONE; -METOCLOPRAMIDE HCL 10 MG/2ML VIAL ONE; -PROPOFOL IV EMULSION 10 MG/ML 20 ML VIAL ONE
[2025-05-26] MEDS ORDERED: ACETAMINOPHEN-1 EAC4 PO (14:43)
[2025-05-26 15:09] VITALS: PULSE 73; RESP 16; TEMP 98.2; O2SAT 100
[2025-05-26] MEDS ORDERED: CARAFATE1 GM PO (16:59)
[2025-05-26] MEDS ORDERED: HYDROCHLOROTHIA25 MG PO (16:59)
== END 2025-05-26 15:09 | disposition home or self-care (01) ==
LOC: FSED 13:31
DX: S20.212A Contusion of left front wall of thorax, initial encounter (principal); W18.39XA Other fall on same level, initial encounter; Y93.01 Activity, walking, marching and hiking; Y92.89 Other specified places as the place of occurrence of the external cause; I10 Essential (primary) hypertension; I50.9 Heart failure, unspecified; I48.91 Unspecified atrial fibrillation; I25.10 Atherosclerotic heart disease of native coronary artery without angina pectoris; E78.5 Hyperlipidemia, unspecified; F41.9 Anxiety disorder, unspecified; M06.9 Rheumatoid arthritis, unspecified; I51.7 Cardiomegaly; Z87.19 Personal history of other diseases of the digestive system
CPT/HCPCS: 71250; 99283